=== PATIENT | male | born 1945 | race Caucasian/White ===

== ENCOUNTER 2020-02-23 14:32 | Inpatient (IN) | payer OTHER ==
[2020-02-23 14:47] VITALS: BMI 27.1
--- NOTE | 2020-02-23 15:10 | PDOC ---
History of Present Illness - General Chief Complaint: Pain, Acute Stated Complaint: ABDOMINAL PAIN Time Seen by Provider: 02/23/20 15:09 History Source: Patient Exam Limitations: No Limitations - History of Present Illness Initial Comments: 02/23/20 15:11 74-year-old male with history of prostate CA w mets, multiple myeloma, asthma, hypertension, diverticulosis, esophagitis, gastritis, and hemorroids, presenting today with 3d progressive worsening ashley lower ABD pain, constipation, reduced urinary volume, BLE weakness/pain radiating down glutes. Was evaluated on 02/05 for BLE MSK pain, transferred to [facility] for bone lytic lesions, soft tissue mass compressing S1-[address] De Jesus oncologist took care of him, endorsed pt having multiple myeloma and prostate CA mets, pt undergone kyphopasty on 02/06, chemo, and radiation, was supposed to f/u w Dr De Jesus tomorrow. Pt doesn't remember which meds he takes. Denies fever, n/v, cough, chest pain, BLE numbness. Past History - Medical History Allergies/Adverse Reactions: Allergies Allergy/AdvReac Type Severity Reaction Status Date / Time aspirin Allergy Verified 02/23/20 14:44 NSAIDS (Non-Steroidal Allergy Verified 02/23/20 14:44 Anti-Inflamma Home Medications: Ambulatory Orders Cetirizine HCl [Zyrtec -] 10 mg PO DAILY #10 tablet 12/14/14 Albuterol 2.5/Ipratropium 0.5 [Duoneb -] 1 neb IH QID 05/05/16 Albuterol Sulfate Inhaler - [Ventolin HFA Inhaler -] 2 inh PO Q6H 05/05/16 Amlodipine Besylate 10 mg PO DAILY 05/05/16 Atorvastatin Ca [Lipitor] 20 mg PO HS 05/05/16 Enalapril Maleate [Vasotec -] 10 mg PO DAILY 05/05/16 Hydrochlorothiazide 25 mg PO DAILY 05/05/16 Omeprazole [Prilosec] 40 mg PO DAILY 05/05/16 Tamsulosin HCl [Flomax -] 0.4 mg PO DAILY 05/05/16 Budesonide [Uceris] 33.4 gm RC BID #0 foam.appl 05/08/16 Wheat Dextrin [Benefiber] 1 each PO BID #0 powd.pack 05/08/16 Lidocaine 5% Patch [Lidoderm -] 1 patch TP DAILY #7 patch 01/03/20 Anemia: Yes Asthma: Yes Cancer: Yes (PROSTATE, RADIATION) COPD: No GI Disorders: Yes (DIVERTICULOSIS;ESOPHAGITIS;GERD;GASTRITIS;HEMORROIDS;H/H) HTN: Yes Hypercholesterolemia: Yes - Immunization History Immunization Up to Date: No - Psycho-Social/Smoking History Smoking History: Never smoked Have you smoked in the past 12 months: No Information on smoking cessation initiated: No - Substance Abuse Hx (Audit-C & DAST Scrn) How often the patient has a drink containing alcohol: Never Score: In Men: 4 or > Positive; In Women: 3 or > Positive: 0 Screen Result (Pos requires Nsg. Audit-10AR): Negative In the last yr the pt used illegal drug/Rx for NonMed reason: No Score: Yes response is considered Positive: 0 Screen Result (Positive result requires Nsg. DAST-10): Negative Review of Systems - Review of Systems Constitutional: No: Chills, Fever HEENTM: No: Eye Pain, Nose Congestion Respiratory: No: Cough, Shortness of Breath Cardiac (ROS): No: Chest Pain, Palpitations ABD/GI: Yes: Abdominal Distended, Constipated. No: Diarrhea, Nausea, Vomiting : Yes: Frequency (reduced). No: Burning, Dysuria Musculoskeletal: No: Gout, Joint Pain Integumentary: No: Bruising, Flushing Neurological: No: Headache, Seizure Psychiatric: No: Anxiety, Depression Endocrine: No: Intolerance to Cold, Intolerance to Heat Hematologic/Lymphatic: No: Anemia, Blood Clots *Physical Exam - Vital Signs Last Vital Signs Temp Pulse Resp BP Pulse Ox 98.3 F 101 H 20 100/63 96 02/23/20 14:45 02/23/20 14:45 02/23/20 14:45 02/23/20 14:45 02/23/20 14:45 - Physical Exam General Appearance: Yes: Nourished, Appropriately Dressed, Moderate Distress HEENT: positive: EOMI, HELEN, Normal Voice, Hearing Grossly Normal. negative: Scleral Icterus (R), Scleral Icterus (L) Respiratory/Chest: positive: Lungs Clear, Normal Breath Sounds. negative: Chest Tender, Respiratory Distress, Crackles, Rales, Rhonchi, Stridor, Wheezing Cardiovascular: positive: Regular Rhythm, S1, S2, Tachycardia. negative: Edema, Murmur Gastrointestinal/Abdominal: positive: Normal Bowel Sounds, Tender (mild LLQ, RLQ), Soft, Distended. negative: Guarding Rectal Exam: positive: normal rectal tone Musculoskeletal: positive: Other. negative: CVA Tenderness (R), CVA Tenderness (L), Vertebral Tenderness (no midline vertebral tenderness) Integumentary: positive: Normal Color, Warm Neurologic: positive: Fully Oriented, Alert. negative: Motor Strength 5/5 (4/5 BLE hip flexion, 5/5 dorsi/plantarflexion), Numbness (intact sensation to touch BLE) ED Treatment Course - LABORATORY CBC & Chemistry Diagram: 02/23/20 15:55 02/23/20 20:30 Medical Decision Making - Medical Decision Making 02/23/20 16:45 EKG - NSR, incomplete RBBB, HR 89, QTc 447, no ST changes CT A/P - moderate colonic distension at level of splenic flexure, no gross obstructing lesion, extensive neoplastic disease involving lumbosacral spine, moderate amount of fluid in bladder w mitchell in place, mod gallbladder overdistension, several punctate subpleural densities within RLL lung which may be d/t bronchiolitis, opacity within RML --- 74-year-old male with history of prostate CA w lumbosacral mets s/p Demarcus kyphoplasty 02/06, multiple myeloma, asthma, hypertension, diverticulosis, esophagitis, gastritis, and hemorrhoids, presenting today with 3d progressive worsening ashley lower ABD pain, constipation, reduced urinary volume, BLE weakness/pain radiating down glutes CT A/P shows mod colonic distension at splenic flexure, neoplastic disease. Also has urinary retention, ANSHUL (Cr 3.2), no UTI Has hypoNa 128, hyperK 6.9 hemolyzed, elevated tbili 2.0 Repeat hypoK 3.4 hemolyzed, Na resolved, Cr improving 1.7 Given insulin/dextrose, Ca gluconate, 1L NS. Placed mitchell w 1.1L drained Consulted Dr Neal Tracy onc - aware about pt has privileges, coming to [facility] tmrw Consulted Dr Johansen onc - make NPO, hydration, blood cx, give antibiotics if febrile, symptoms likely progression of myeloma Dr Neal replied, agrees with plan to admit pt to [facility], will evaluate plan tmrw Admit m/s hospitalist for urinary retention, colonic distension, ANSHUL, elevated tbili, multiple myeloma Mikael Willoughby MD [Primary Care Provider] Discharge - Discharge Information Problems reviewed: Yes Clinical Impression/Diagnosis: ANSHUL (acute kidney injury), Urinary retention, Dilatation of colon Multiple myeloma Qualifiers: Multiple myeloma remission status: unspecified Qualified Code(s): C90.00 - Multiple myeloma not having achieved remission Condition: Guarded - Follow up/Referral - Patient Discharge Instructions - Post Discharge Activity
[2020-02-23 16:08] LABS: BASO % 0.5 % (0-2.0); EOS % 0.3 % (0-4.5); HEMATOCRIT 35.4 % (35.4-49); HEMOGLOBIN 12.1 GM/dL (11.7-16.9); LYMPH % 4.3 % (8-40); MCH 34.4 pg (25.7-33.7); MCHC 34.3 g/dl (32.0-35.9); MEAN CELL VOLUME 100.3 fl (80-96); MEAN PLT VOLUME 8.9 fl (7.5-11.1); NEUT % 85.9 % (42.8-82.8); PLATELET COUNT 158 K/MM3 (134-434); RBC 3.52 M/mm3 (4.00-5.60); RDW 15.7 % (11.9-15.9); WHITE BLOOD COUNT 7.5 K/mm3 (4.0-10.0)
[2020-02-23 16:31] LABS: EPI CELLS 2 /uL (0-25.1); HYALINE CASTS 1 /uL (0-3.1); URINE APPEARANCE CLEAR; URINE BACTERIA 1 /uL (0-1359); URINE BILIRUBIN NEGATIVE (NEGATIVE); URINE COLOR YELLOW; URINE GLUCOSE (UA) NEGATIVE (NEGATIVE); URINE KETONE NEGATIVE (NEGATIVE); URINE LEUK ESTERASE NEGATIVE (NEGATIVE); URINE NITRITE NEGATIVE (NEGATIVE); URINE PROTEIN NEGATIVE (NEGATIVE); URINE RBC 23 /uL (0-23.9); URINE WBC 5 /uL (0-25.8)
[2020-02-23 16:34] LABS: ALBUMIN 2.3 g/dl (3.4-5.0); BLOOD UREA NITROGEN 44.4 mg/dL (7-18); CALCIUM 7.6 mg/dL (8.5-10.1); CREATININE 3.2 mg/dL (0.55-1.3); TOT PROT 8.4 g/dl (6.4-8.2)
[2020-02-23 16:38] LABS: POTASSIUM 6.9 mmol/L (3.5-5.1)
[2020-02-23] MEDS ORDERED: SODIUM CHLORIDE 0.9% 500 ML INFUS.BAG IV ONE (16:58)
[2020-02-23] MEDS ORDERED: INSULIN REGULAR HUMAN 100 UNITS/ML *VIAL IVPUSH ONE (17:03)
[2020-02-23] MEDS ORDERED: CALCIUM GLUCONATE 10% - 1,000 MG/10 ML VIAL IVPUSH ONE (17:03)
[2020-02-23] MEDS ORDERED: DEXTROSE 50%-WATER - 25 GM/50 ML VIAL IVPUSH ONE (17:03)
--- NOTE | 2020-02-23 18:03 | PDOC ---
Documentation entered by Diana Arteaga SCRIBE, acting as scribe for Annie Hernandez MD. Annie Hernandez MD: This documentation has been prepared by the Leona ray Sydney, SCRIBE, under my direction and personally reviewed by me in its entirety. I confirm that the documentation accurately reflects all work, treatment, procedures, and medical decision making performed by me. Attending Attestation - Resident Resident Name: LailaGordy - ED Attending Attestation I have performed the following: I have examined & evaluated the patient, The case was reviewed & discussed with the resident, I agree w/resident's findings & plan, Exceptions are as noted - HPI HPI: 02/23/20 17:33 Patient is a 74 year old male with a significant past medical history of HTN, prostate CA, asthma, diverticulosis, esophagitis, gastritis, hemorrhoids who presents to the ED with three days progressively worsening lower abdominal pain with associated constipation. HPI This patient was diagnosed with mets to his spine with nerve root compression in lumbosacral spine on 02/06/20 and transferred to [facility] where he received chemo,radiation and surgery.on 02/06/20 Allergies: ASA, NSAIDS 02/23/20 19:2 - Physicial Exam PE: 02/23/20 17:51 74 YO MALE P/W increasing abdominal pain head ncat neck supple lungs cta b/l cvs [id number] abdomen +distended,+ tenderness skin warm and dry extremities no deformities neuro axox3 02/23/20 19:34 02/23/20 20:40 - Medical Decision Making 02/23/20 19:3 02/23/20 19:35 02/23/20 19:35 ct scan abd/pel w/o contrast no acute surgical processes appreciated, there is distention of colon 02/23/20 20:41 pt found to have hyponatremia, ANSHUL His creatinine on 02/05 was 0.8 and today it is 3.2 02/23/20 20:42 02/23/20 22:46 This patient's oncologist will see the patient in the morning Discharge - Discharge Information Problems reviewed: Yes Clinical Impression/Diagnosis: ANSHUL (acute kidney injury), Urinary retention, Dilatation of colon Multiple myeloma Qualifiers: Multiple myeloma remission status: unspecified Qualified Code(s): C90.00 - Multiple myeloma not having achieved remission Condition: Guarded - Follow up/Referral - Patient Discharge Instructions - Post Discharge Activity
[2020-02-23] MEDS ORDERED: CALCIUM CHLORIDE 1 GM/10 ML *DISP.SYRIN ONE (18:46)
[2020-02-23] MEDS ORDERED: DEXTROSE 50%-WATER 25 GM/50 ML DISP.SYRIN ONE (18:46)
[2020-02-23] MEDS ORDERED: CALCIUM GLUCONATE 10% - 1,000 MG/10 ML VIAL ONE (18:47)
[2020-02-23] MEDS ORDERED: INSULIN REGULAR HUMAN 100 UNITS/ML *VIAL ONE (18:47)
[2020-02-23 21:38] LABS: BLOOD UREA NITROGEN 32.5 mg/dL (7-18); CREATININE 1.7 mg/dL (0.55-1.3); POTASSIUM 3.4 mmol/L (3.5-5.1)
[2020-02-23 21:42] LABS: CALCIUM 6.2 mg/dL (8.5-10.1)
[2020-02-23] MEDS ORDERED: SODIUM CHLORIDE 1,000 ML IV SCH (21:45)
--- NOTE | 2020-02-23 22:01 | PN ---
Teaching Attending Note Name of Resident: Jamie Rivera ATTENDING PHYSICIAN STATEMENT I saw and evaluated the patient. I reviewed the resident's note and discussed the case with the resident. I agree with the resident's findings and plan as documented. SUBJECTIVE: Patient is a 74 year old man with a PMH of Prostate cancer with metastasis (r adiotherapy 6 years ago), Multiple myeloma, Asthma, Hypertension, Diverticulosis, Esophagitis, Gastritis, and Hemorrhoids, presenting today with three days of progressive worsening lower abdominal pain, constipation, reduced urinary volume and BLE weakness/pain. Patient was evaluated on 02/06/20 for BLE musculoskeletal pain and transferred to [facility] for bone lytic lesions and soft tissue mass compressing S1-[address] De Jesus - the Oncologist who took care of him, reports patient has multiple myeloma and metastatic prostate cancer. Patient underwent kyphopasty on 02/07/20, chemotherapy, and radiation therapy and was supposed to follow up with Dr De Jesus tomorrow. Patient doesn't remember what medications he is taking. Denies fever, nausea, vomiting, cough, chest pain, diarrhea or BLE numbness. Denies alcohol, tobacco or illicit drug use. No sick contacts or recent travels. Family history is unremarkable. OBJECTIVE: Alert Vital Signs Period Temp Pulse Resp BP Sys/Carpenter Pulse Ox Last 24 Hr 98.3 F 101 20 100/63 96 HEENT: No Jaundice, eye redness or discharge, PERRLA, EOMI. Normocephalic, atraumatic. External ears are normal and hearing is grossly intact. No nasal discharge. Neck: Supple, nontender. No palpable adenopathy or thyromegaly. No JVD Chest: Good effort. Clear to auscultation and percussion. Heart: Regular. No S3, rub or murmur Abdomen: Distended, tympanic; soft, nontender and no HSM. No rebound or guarding. Normal bowel sounds. Ext: Peripheral pulses intact. No leg edema. Skin: Warm and dry. No petechiae, rash or ecchymosis. Neuro: Alert. Oriented x3. CN 2-12 grossly intact. Sensation grossly intact in all four extremities and DTR are symmetric. Psych: Appropriate mood and affect. Good insight. Current Medications Generic Name Dose Route Start Last Admin Trade Name Freq PRN Reason Stop Dose Admin Sodium Chloride 1,000 mls @ 42 mls/hr 02/23/20 21:45 02/23/20 22:03 Normal Saline - IV 42 mls/hr ASDIR [facility] Administration Home Medications Medication Instructions Recorded Cetirizine HCl [Zyrtec -] 10 mg PO DAILY #10 tablet 12/14/14 Albuterol 2.5/Ipratropium 0.5 1 neb IH QID 05/05/16 [Duoneb -] Albuterol Sulfate Inhaler - 2 inh PO Q6H 05/05/16 [Ventolin HFA Inhaler -] Amlodipine Besylate 10 mg PO DAILY 05/05/16 Atorvastatin Ca [Lipitor] 20 mg PO HS 05/05/16 Enalapril Maleate [Vasotec -] 10 mg PO DAILY 05/05/16 Hydrochlorothiazide 25 mg PO DAILY 05/05/16 Omeprazole [Prilosec] 40 mg PO DAILY 05/05/16 Tamsulosin HCl [Flomax -] 0.4 mg PO DAILY 05/05/16 Budesonide [Uceris] 33.4 gm RC BID #0 foam.appl 05/08/16 Wheat Dextrin [Benefiber] 1 each PO BID #0 powd.pack 05/08/16 Lidocaine 5% Patch [Lidoderm -] 1 patch TP DAILY #7 patch 01/03/20 Valacyclovir HCl [Valtrex -] 500 mg PO BID 02/23/20 Abnormal Lab Results 02/23/20 02/23/20 02/23/20 15:55 15:55 20:30 RBC 3.52 L MCV 100.3 H MCH 34.4 H Neutrophils % 85.9 H Lymphocytes % 4.3 L Sodium 128 L Potassium 6.9 H* 3.4 L Chloride 93 L 108 H Carbon Dioxide 20 L BUN 44.4 H 32.5 H Creatinine 3.2 H 1.7 H Random Glucose 124 H Calcium 7.6 L 6.2 L* Total Bilirubin 2.0 H AST 76 H Total Protein 8.4 H Albumin 2.3 L Current Medications Generic Name Dose Route Start Last Admin Trade Name Freq PRN Reason Stop Dose Admin Dexamethasone 4 mg 02/24/20 00:30 Decadron - PO Q6H [facility] Heparin Sodium (Porcine) 5,000 unit 02/24/20 06:00 Heparin - SQ TID [facility] Sodium Chloride 1,000 mls @ 42 mls/hr 02/23/20 21:45 02/23/20 22:03 Normal Saline - IV 42 mls/hr ASDIR ÁNGELA Administration ASSESSMENT AND PLAN: 1. Multiple myeloma/Metastatic prostate cancer/Urinary retention - Electrolyte abnormalities and ANSHUL likely due to urinary retention, which in turn may have been caused by malignancy. Initial BMP sample reportedly hemolysed, but patient got acute measures for hyperkalemia and IV calcium treatment and repeat BMP showed hypokalemia. Will repeat BMP before K+ replacement. Consult Oncology and Neurology and do a trial of Dexamethasone. CT abdomen/pelvis without contrast shows - "moderate colonic distension at level of splenic flexure, no gross obstructing lesion, extensive neoplastic disease involving lumbosacral spine, moderate amount of fluid in bladder with mitchell in place, moderate gallbladder overdistension, several punctate subpleural densities within RLL which may be due to bronchiolitis, opacity within RML" Colonic distension may be partly due to electrolyte abnormalities. Will keep him NPO, monitor electrolytes, get kidney sonogram, hydrate gently, monitor urine output and consult Nephrology and GI. Avoid nephrotoxic agents such as NSAIDS, aminoglycosides, contrast dyes and certain Alternative medicine products. Viral testing for COVID-19 ordered and patient placed on airborne, droplet and contact isolation. EKG shows NSR at 89/minute and QTc 447, IRBBB with no significant ST- T wave changes. Will continue comprehensive care for all of patients comorbid conditions. 2. Hypoalbuminemia - Possibly due to combined effects of malnutrition and inflammation associated with comorbid conditions. Will ensure adequate dietary protein intake and also consult field hockey coach. 3. Hypertension Patient has low normal BP. Will restart suitable outpatient antihypertensive drugs only when clinically appropriate. Subsequently, will revise regimen to ensure [id number] excellent BP control. Patient counseled on the injurious effects of uncontrolled hypertension. Nonpharmacologic measures to control hypertension like weight loss, salt restriction and exercise stressed. Importance of adherence to treatment regimen and attainment of normotension emphasized. 4. DVT prophylaxis - Heparin 5000u sq tid. 5. Advance directives - Full code
--- NOTE | 2020-02-23 23:00 | HP ---
CHIEF COMPLAINT: lower abd pain PCP: Fartun HISTORY OF PRESENT ILLNESS: 74M w/ pmh of prostate CA(sp RT in ~2013), Multiple Myeloma(dx ?last week), asthma, HTN, gastritis presenting to [facility] for complaint of cramping lower abd pain w/a constipation, bloating, inability to urinate x3d. Complains of lower abd pain that radiates to his things and buttocks. Thinks that there is numbness that extends from his buttocks down to his feet. Has difficulty walking d/t pain in his thighs. Was seen at [facility] last month(02/06/20) for evaluation BLE pain [id number] with CT L-spine showing a soft tissue mass extending into the sacral canal from L5 to S1 with likely compression of the S1 and S2 nerve roots. Pt was transferred to [facility] d/t [facility] lack of NSX coverage. Pt states that at [facility], he received spinal surgery, radiation and chemotherapy prior to being discharged last (?02/19/20). Was suppose to fu at Dr De Jesus's office this week. Denies LAD, night sweats, weight loss. Worked as a [employer]. Lives with . Document Agility [id number] ER course was notable for: (1) Tmax 98.3F, HR 101, 100/63 (2) Na 128, K 6.9(hemolyzed) (3) Dc insertion(drained 1.1L) (4) CT A/P: moderate colonic distension to the level of the splenic flexure. Neoplastic disease involving L-S spine. Moderate gallbladder overdistension (5) disscussion w/ Dr Johansen and Dr De Jesus; who concluded that the presentation is possibly d/t progression of MM and recommended admission for NPO, IVF (6) novolog 10U, D50, calcium gluconate, NS 1L Recent Travel: denies PAST MEDICAL HISTORY: as above PAST SURGICAL HISTORY: unspecificed spine surgery Social History: Smoking: denies Alcohol: denies Drugs: denies Allergies aspirin Allergy (Verified 02/23/20 14:44) NSAIDS (Non-Steroidal Anti-Inflamma Allergy (Verified 02/23/20 14:44) HOME MEDICATIONS: Home Medications Medication Instructions Recorded Cetirizine HCl [Zyrtec -] 10 mg PO DAILY #10 tablet 12/14/14 Albuterol 2.5/Ipratropium 0.5 1 neb IH QID 05/05/16 [Duoneb -] Albuterol Sulfate Inhaler - 2 inh PO Q6H 05/05/16 [Ventolin HFA Inhaler -] Amlodipine Besylate 10 mg PO DAILY 05/05/16 Atorvastatin Ca [Lipitor] 20 mg PO HS 05/05/16 Enalapril Maleate [Vasotec -] 10 mg PO DAILY 05/05/16 Hydrochlorothiazide 25 mg PO DAILY 05/05/16 Omeprazole [Prilosec] 40 mg PO DAILY 05/05/16 Tamsulosin HCl [Flomax -] 0.4 mg PO DAILY 05/05/16 Budesonide [Uceris] 33.4 gm RC BID #0 foam.appl 05/08/16 Wheat Dextrin [Benefiber] 1 each PO BID #0 powd.pack 05/08/16 Lidocaine 5% Patch [Lidoderm -] 1 patch TP DAILY #7 patch 01/03/20 Valacyclovir HCl [Valtrex -] 500 mg PO BID 02/23/20 REVIEW OF SYSTEMS CONSTITUTIONAL: loss of appetite Absent: fever, chills, diaphoresis, generalized weakness, malaise, weight change HEENT: Absent: rhinorrhea, nasal congestion, throat pain, throat swelling, difficulty swallowing, mouth swelling, ear pain, eye pain, visual changes CARDIOVASCULAR: Absent: chest pain, syncope, palpitations, irregular heart rate, lightheadedness, peripheral edema RESPIRATORY: Absent: cough, shortness of breath, dyspnea with exertion, orthopnea, wheezing, stridor, hemoptysis GASTROINTESTINAL: lower abd pain w/ distension, constipation Absent: nausea, vomiting, diarrhea, melena, hematochezia GENITOURINARY: urinary retention Absent: dysuria, frequency, urgency, hesitancy, hematuria, flank pain, genital pain MUSCULOSKELETAL: Absent: myalgia, arthralgia, joint swelling, back pain, neck pain SKIN: Absent: rash, itching, pallor HEMATOLOGIC/IMMUNOLOGIC: Absent: easy bleeding, easy bruising, lymphadenopathy, frequent infections ENDOCRINE: Absent: unexplained weight gain, unexplained weight loss, heat intolerance, cold intolerance NEUROLOGIC: Absent: headache, focal weakness or paresthesias, dizziness, unsteady gait, seizure, mental status changes, bladder or bowel incontinence PSYCHIATRIC: Absent: anxiety, depression, suicidal or homicidal ideation, hallucinations. PHYSICAL EXAMINATION Vital Signs - 24 hr 02/23/20 14:45 Temperature 98.3 F Pulse Rate 101 H Respiratory 20 Rate Blood Pressure 100/63 O2 Sat by Pulse 96 Oximetry (%) GENERAL: Awake, alert, and fully oriented, in no acute distress. HEAD: Normal with no signs of trauma. EYES: sclera anicteric, conjunctiva clear and w/o pallor. EARS, NOSE, THROAT: Moist mucous membranes. NECK: Normal range of motion, supple without lymphadenopathy, JVD, or masses. LUNGS: Breath sounds equal, clear to auscultation bilaterally. No wheezes, and no crackles. No accessory muscle use. HEART: Regular rate and rhythm, normal S1 and S2 without murmur, rub or gallop. ABDOMEN: Soft, nontender, mildly distended and tympanic to percussion, hypoactive bowel sounds RECTUM: normal anal wink. Normal anal tone(as per Dr Lopes) MUSCULOSKELETAL: Normal range of motion at all joints. No bony deformities or tenderness. No CVA tenderness. UPPER EXTREMITIES: 2+ pulses, warm, well-perfused. No cyanosis. No clubbing. No peripheral edema. LOWER EXTREMITIES: 2+ pulses, warm, well-perfused. No calf tenderness. No peripheral edema. NEUROLOGICAL: Cranial nerves II-XII intact. Normal speech. Sensation intact throughout upper and lower extremities. Neg straight leg raise Laboratory Results - last 24 hr 02/23/20 02/23/20 02/23/20 15:55 15:55 16:09 WBC 7.5 RBC 3.52 L Hgb 12.1 Hct 35.4 MCV 100.3 H MCH 34.4 H MCHC 34.3 RDW 15.7 Plt Count 158 D MPV 8.9 D Absolute Neuts (auto) 6.4 Neutrophils % 85.9 H Lymphocytes % 4.3 L Monocytes % 9.0 Eosinophils % 0.3 Basophils % 0.5 Nucleated RBC % 0 Sodium 128 L Potassium 6.9 H* Chloride 93 L Carbon Dioxide 25 Anion Gap 9 BUN 44.4 H Creatinine 3.2 H Est GFR (CKD-EPI)AfAm 21.11 Est GFR (CKD-EPI)NonAf 18.22 POC Glucometer Random Glucose 124 H Lactic Acid Calcium 7.6 L Total Bilirubin 2.0 H AST 76 H ALT 57 Alkaline Phosphatase 86 Total Protein 8.4 H Albumin 2.3 L Lipase 206 Urine Color Yellow Urine Appearance Clear Urine pH 5.0 Ur Specific [place] 1.013 Urine Protein Negative Urine Glucose (UA) Negative Urine Ketones Negative Urine Blood Trace Urine Nitrite Negative Urine Bilirubin Negative Urine Urobilinogen 1.0 Ur Leukocyte Esterase Negative Urine WBC (Auto) 5 Urine RBC (Auto) 23 Urine Casts (Auto) 1 U Epithel Cells (Auto) 2 Urine Bacteria (Auto) 1 02/23/20 02/23/20 02/23/20 18:59 20:30 21:49 WBC RBC Hgb Hct MCV MCH MCHC RDW Plt Count MPV Absolute Neuts (auto) Neutrophils % Lymphocytes % Monocytes % Eosinophils % Basophils % Nucleated RBC % Sodium 140 Potassium 3.4 L Chloride 108 H Carbon Dioxide 20 L Anion Gap 11 BUN 32.5 H Creatinine 1.7 H Est GFR (CKD-EPI)AfAm 45.36 Est GFR (CKD-EPI)NonAf 39.14 POC Glucometer 300 Random Glucose 84 Lactic Acid 1.9 Calcium 6.2 L* Total Bilirubin AST ALT Alkaline Phosphatase Total Protein Albumin Lipase Urine Color Urine Appearance Urine pH Ur Specific [place] Urine Protein Urine Glucose (UA) Urine Ketones Urine Blood Urine Nitrite Urine Bilirubin Urine Urobilinogen Ur Leukocyte Esterase Urine WBC (Auto) Urine RBC (Auto) Urine Casts (Auto) U Epithel Cells (Auto) Urine Bacteria (Auto) ASSESSMENT/PLAN: 74M w/ pmh of prostate CA(sp RT in ~2013), Multiple Myeloma(dx ?last week), asthma, HTN, gastritis presenting to [facility] for complaint of cramping lower abd pain w/a constipation, bloating, inability to urinate x3d. Admitted for possible cord compression 2/2 to soft tissue malignancy #abdominal pain w/ colonic distension --possibly 2/2 to irritation of sacral plexus from malignant compression, vs possible electrolyte derrangment > CT A/P: moderate colonic distension to the level of the splenic flexure. Neoplastic disease involving L-S spine. Moderate gallbladder overdistension - decadron 4mg q6h - Neurosurgery consult(Chiles): --recs pending - Oncology consult(Neal): --recs pending #ANSHUL --likely 2/2 to postrenal obstruction(urinary retention) #urinary retention --possibly from cord compression > Cr 3.2, 1.7, 1.4 - sp ED Dc placement(1.1L output immediately) - maintain Dc - trend Cr #hyperkalemia --d/t hemolysis. rpt hyperkalemia possible 2/2 kidney injury from outlet obstruction #hypocalcemia --?lab error > Na 128, K 6.9(hemolyzed) > Ca 7.6, 6.2, 7.8(corrected 9.1) - fu PTH - would have considered Vit D if persistently hypocalcemic #HTN - cw amlodipine, enalapril --pt doesn't know his home meds FEN - D5NS @50 - NPO DVT PPX: - SQH Family Medical History Family History: Unremarkable Visit type - Emergency Visit Emergency Visit: Yes ED Registration Date: 02/23/20 Care time: The patient presented to the Emergency Department on the above date and was hospitalized for further evaluation of their emergent condition. - New Patient This patient is new to me today: Yes Date on this admission: 02/24/20 - Critical Care Critical Care patient: No ATTENDING PHYSICIAN STATEMENT I saw and evaluated the patient. I reviewed the resident's note and discussed the case with the resident. I agree with the resident's findings and plan as documented. SUBJECTIVE: OBJECTIVE: ASSESSMENT AND PLAN:
[2020-02-24 02:19] LABS: ALBUMIN 2.4 g/dl (3.4-5.0); BLOOD UREA NITROGEN 29.7 mg/dL (7-18); CALCIUM 7.8 mg/dL (8.5-10.1); CREATININE 1.4 mg/dL (0.55-1.3); MAGNESIUM 2.9 mg/dL (1.8-2.4); POTASSIUM 5.4 mmol/L (3.5-5.1)
[2020-02-24] MEDS ORDERED: DEXAMETHASONE 4 MG TABLET (FP) ONE (02:26)
[2020-02-24] MEDS: DEXAMETHASONE 4 MG TABLET (FP) PO SCH ×2 (02:31→07:26)
[2020-02-24] MEDS ORDERED: SODIUM CHLORIDE 1,000 ML IV SCH (02:54)
[2020-02-24] MEDS ORDERED: DEXTROSE 5%-NORMAL SALINE 1,000 ML IV SCH (03:15)
[2020-02-24] MEDS ORDERED: HEPARIN NA (PORCINE) 5,000 UNITS/ML 1ML VIAL SQ SCH (06:00)
[2020-02-24] MEDS ORDERED: HEPARIN NA (PORCINE) 5,000 UNITS/ML 1ML VIAL ONE (06:41)
[2020-02-24] MEDS ORDERED: ALBUTEROL SO4 HFA INHALER IH PRN (06:42)
[2020-02-24 07:32] LABS: HEMATOCRIT 30.3 % (35.4-49); HEMOGLOBIN 10.2 GM/dL (11.7-16.9); MCH 34.3 pg (25.7-33.7); MCHC 33.8 g/dl (32.0-35.9); MEAN CELL VOLUME 101.4 fl (80-96); MEAN PLT VOLUME 8.9 fl (7.5-11.1); PLATELET COUNT 144 K/MM3 (134-434); RBC 2.99 M/mm3 (4.00-5.60); RDW 15.5 % (11.9-15.9)
[2020-02-24] MEDS ORDERED: ENALAPRIL MALEATE 5 MG TABLET (FP) ONE (08:11)
[2020-02-24] MEDS ORDERED: TAMSULOSIN HCL 0.4 MG CAP ONE (08:11)
[2020-02-24] MEDS ORDERED: amLODIPine BESYLATE 5 MG TABLET (FP) ONE (08:11)
[2020-02-24] MEDS ORDERED: TAMSULOSIN HCL 0.4 MG CAP PO SCH (08:30)
[2020-02-24] MEDS ORDERED: ENALAPRIL MALEATE 10 MG TABLET (FP) PO SCH (10:00)
[2020-02-24] MEDS ORDERED: amLODIPine BESYLATE 10 MG TABLET (FP) PO SCH (10:00)
--- NOTE | 2020-02-24 10:13 | EKG ---
Test Reason : Blood Pressure : / mmHG Vent. Rate : 089 BPM Atrial Rate : 089 BPM P-R Int : 120 ms QRS Dur : 100 ms QT Int : 368 ms P-R-T Axes : 066 006 035 degrees QTc Int : 447 ms NORMAL SINUS RHYTHM INCOMPLETE RIGHT BUNDLE BRANCH BLOCK BORDERLINE ECG WHEN COMPARED WITH ECG OF 06-FEB-2020 22:37, NO SIGNIFICANT CHANGE WAS FOUND Confirmed by Richie Mary MD ([id number]) on 02/24/2020 10:12:48 AM Referred By: Confirmed By:Richie Mary MD
[2020-02-24 10:29] LABS: ALBUMIN 2.2 g/dl (3.4-5.0); BILIRUBIN,TOTAL 0.8 mg/dL (0.2-1); BLOOD UREA NITROGEN 19.7 mg/dL (7-18); CALCIUM 7.6 mg/dL (8.5-10.1); CREATININE 0.9 mg/dL (0.55-1.3); MAGNESIUM 2.8 mg/dL (1.8-2.4); PHOSPHOROUS 1.8 mg/dL (2.5-4.9); POTASSIUM 4.1 mmol/L (3.5-5.1); TOT PROT 6.8 g/dl (6.4-8.2)
[2020-02-24 11:09] VITALS: BP 120/71; PULSE 78; TEMP 97.2
--- NOTE | 2020-02-24 12:44 | DS ---
Physical Exam: SUBJECTIVE: Patient seen and examined. States he has b/l LE pain. OBJECTIVE: Vital Signs Period Temp Pulse Resp BP Sys/Carpenter Pulse Ox Last 24 Hr 97.0 F-98.3 F 78-101 16-20 100-137/63-84 96-100 PHYSICAL EXAM GENERAL: The patient is awake, alert, and fully oriented, in no acute distress. HEENT: NCAT. MMM. LUNGS: Breath sounds equal, clear to auscultation bilaterally, no wheezes, no crackles, no accessory muscle use. HEART: Regular rate and rhythm, S1, S2 without murmur, rub or gallop. ABDOMEN: Soft, nontender, nondistended, normoactive bowel sounds, no guarding, no rebound, no hepatosplenomegaly, no masses. EXTREMITIES: 2+ pulses, warm, well-perfused, no edema. NEUROLOGICAL: Cranial nerves II through XII grossly intact. Mild diminished sensation b/l LE. PSYCH: Normal mood, normal affect. SKIN: Warm, dry, normal turgor, no rashes or lesions noted. LABS Laboratory Results - last 24 hr 02/23/20 02/23/20 02/23/20 15:55 15:55 16:09 WBC 7.5 RBC 3.52 L Hgb 12.1 Hct 35.4 MCV 100.3 H MCH 34.4 H MCHC 34.3 RDW 15.7 Plt Count 158 D MPV 8.9 D Absolute Neuts (auto) 6.4 Neutrophils % 85.9 H Lymphocytes % 4.3 L Monocytes % 9.0 Eosinophils % 0.3 Basophils % 0.5 Nucleated RBC % 0 Sodium 128 L Potassium 6.9 H* Chloride 93 L Carbon Dioxide 25 Anion Gap 9 BUN 44.4 H Creatinine 3.2 H Est GFR (CKD-EPI)AfAm 21.11 Est GFR (CKD-EPI)NonAf 18.22 POC Glucometer Random Glucose 124 H Lactic Acid Calcium 7.6 L Phosphorus Magnesium Total Bilirubin 2.0 H AST 76 H ALT 57 Alkaline Phosphatase 86 Total Protein 8.4 H Albumin 2.3 L Lipase 206 TSH Urine Color Yellow Urine Appearance Clear Urine pH 5.0 Ur Specific [place] 1.013 Urine Protein Negative Urine Glucose (UA) Negative Urine Ketones Negative Urine Blood Trace Urine Nitrite Negative Urine Bilirubin Negative Urine Urobilinogen 1.0 Ur Leukocyte Esterase Negative Urine WBC (Auto) 5 Urine RBC (Auto) 23 Urine Casts (Auto) 1 U Epithel Cells (Auto) 2 Urine Bacteria (Auto) 1 02/23/20 02/23/20 02/23/20 18:59 20:30 21:49 WBC RBC Hgb Hct MCV MCH MCHC RDW Plt Count MPV Absolute Neuts (auto) Neutrophils % Lymphocytes % Monocytes % Eosinophils % Basophils % Nucleated RBC % Sodium 140 Potassium 3.4 L Chloride 108 H Carbon Dioxide 20 L Anion Gap 11 BUN 32.5 H Creatinine 1.7 H Est GFR (CKD-EPI)AfAm 45.36 Est GFR (CKD-EPI)NonAf 39.14 POC Glucometer 300 Random Glucose 84 Lactic Acid 1.9 Calcium 6.2 L* Phosphorus Magnesium Total Bilirubin AST ALT Alkaline Phosphatase Total Protein Albumin Lipase TSH Urine Color Urine Appearance Urine pH Ur Specific [place] Urine Protein Urine Glucose (UA) Urine Ketones Urine Blood Urine Nitrite Urine Bilirubin Urine Urobilinogen Ur Leukocyte Esterase Urine WBC (Auto) Urine RBC (Auto) Urine Casts (Auto) U Epithel Cells (Auto) Urine Bacteria (Auto) 02/24/20 02/24/20 02/24/20 01:44 06:46 06:55 WBC 5.0 RBC 2.99 L Hgb 10.2 L Hct 30.3 L MCV 101.4 H MCH 34.3 H MCHC 33.8 RDW 15.5 Plt Count 144 MPV 8.9 Absolute Neuts (auto) Neutrophils % Lymphocytes % Monocytes % Eosinophils % Basophils % Nucleated RBC % Sodium 134 L Potassium 5.4 H Chloride 99 Carbon Dioxide 26 Anion Gap 9 BUN 29.7 H Creatinine 1.4 H Est GFR (CKD-EPI)AfAm 57.36 Est GFR (CKD-EPI)NonAf 49.49 POC Glucometer 119 Random Glucose 99 Lactic Acid Calcium 7.8 L Phosphorus 3.0 Magnesium 2.9 H Total Bilirubin 1.0 AST 22 ALT 46 Alkaline Phosphatase 82 Total Protein 7.0 Albumin 2.4 L Lipase TSH Urine Color Urine Appearance Urine pH Ur Specific [place] Urine Protein Urine Glucose (UA) Urine Ketones Urine Blood Urine Nitrite Urine Bilirubin Urine Urobilinogen Ur Leukocyte Esterase Urine WBC (Auto) Urine RBC (Auto) Urine Casts (Auto) U Epithel Cells (Auto) Urine Bacteria (Auto) 02/24/20 09:18 WBC RBC Hgb Hct MCV MCH MCHC RDW Plt Count MPV Absolute Neuts (auto) Neutrophils % Lymphocytes % Monocytes % Eosinophils % Basophils % Nucleated RBC % Sodium 136 Potassium 4.1 Chloride 101 Carbon Dioxide 26 Anion Gap 9 BUN 19.7 H Creatinine 0.9 Est GFR (CKD-EPI)AfAm 97.86 Est GFR (CKD-EPI)NonAf 84.43 POC Glucometer Random Glucose 117 H Lactic Acid Calcium 7.6 L Phosphorus 1.8 L Magnesium 2.8 H Total Bilirubin 0.8 AST 19 ALT 45 Alkaline Phosphatase 77 Total Protein 6.8 Albumin 2.2 L Lipase TSH 0.78 Urine Color Urine Appearance Urine pH Ur Specific [place] Urine Protein Urine Glucose (UA) Urine Ketones Urine Blood Urine Nitrite Urine Bilirubin Urine Urobilinogen Ur Leukocyte Esterase Urine WBC (Auto) Urine RBC (Auto) Urine Casts (Auto) U Epithel Cells (Auto) Urine Bacteria (Auto) HOSPITAL COURSE: 74 y.. M w/ pmh of prostate CA(sp RT in ~2013), Multiple Myeloma(dx last week), asthma, HTN, gastritis presenting to [facility] for complaint of cramping lower abd pain w/a constipation, bloating, inability to urinate x3d. Was seen at [facility] last month(02/06/20) for evaluation BLE pain x3 month with CT L-spine showing a soft tissue mass extending into the sacral canal from L5 to S1 with likely compression of the S1 and S2 nerve roots. Pt was transferred to [facility] d/t [facility]'s lack of neurosurgery coverage. At [facility] patient had a vertebroplasty and was d/c'd on 02/19/2020. Patient now presenting with post-op symptoms. [facility] transfer center was contacted, patient for transfer to [facility] under Dr. Ordaz services. VSS. Hemodynamically stable for transport. Date of Admission:02/23/20 Date of Discharge: 02/24/20 Minutes to complete discharge: 36 Discharge Summary Problems reviewed: Yes Reason For Visit: ACUTE KIDNEY INJURY,RETENTION OF URINE, Condition: Guarded - Instructions Disposition: TRANSFER ACUTE CARE/OTHER HOSP - Home Medications Comprehensive Discharge Medication List: Ambulatory Orders Cetirizine HCl [Zyrtec -] 10 mg PO DAILY #10 tablet 12/14/14 Albuterol 2.5/Ipratropium 0.5 [Duoneb -] 1 neb IH QID 05/05/16 Albuterol Sulfate Inhaler - [Ventolin HFA Inhaler -] 2 inh PO Q6H 05/05/16 Amlodipine Besylate 10 mg PO DAILY 05/05/16 Atorvastatin Ca [Lipitor] 20 mg PO HS 05/05/16 Enalapril Maleate [Vasotec -] 10 mg PO DAILY 05/05/16 Hydrochlorothiazide 25 mg PO DAILY 05/05/16 Omeprazole [Prilosec] 40 mg PO DAILY 05/05/16 Tamsulosin HCl [Flomax -] 0.4 mg PO DAILY 05/05/16 Budesonide [Uceris] 33.4 gm RC BID #0 foam.appl 05/08/16 Wheat Dextrin [Benefiber] 1 each PO BID #0 powd.pack 05/08/16 Lidocaine 5% Patch [Lidoderm -] 1 patch TP DAILY #7 patch 01/03/20 Valacyclovir HCl [Valtrex -] 500 mg PO BID 02/23/20 This patient is new to me today: Yes Date on this admission: 02/24/20 Emergency Visit: Yes ED Registration Date: 02/23/20 Care time: The patient presented to the Emergency Department on the above date and was hospitalized for further evaluation of their emergent condition. Critical Care patient: No - Discharge Referral Referred to [facility] Med P.C.: No ATTENDING PHYSICIAN STATEMENT I saw and evaluated the patient. I reviewed the resident's note and discussed the case with the resident. I agree with the resident's findings and plan as documented. SUBJECTIVE: OBJECTIVE: ASSESSMENT AND PLAN:
== END 2020-02-24 11:30 | disposition short-term general hospital (02) | DRG 841 ==
LOC: JER 14:32 → JERBED 17:57
PROVIDERS: ADMIT Internal Medicine; ATTEND Internal Medicine
DX: C90.00 Multiple myeloma not having achieved remission (principal); G95.29 Other cord compression; C79.89 Secondary malignant neoplasm of other specified sites; N17.9 Acute kidney failure, unspecified; E87.1 Hypo-osmolality and hyponatremia; E46 Unspecified protein-calorie malnutrition; C79.51 Secondary malignant neoplasm of bone; J45.909 Unspecified asthma, uncomplicated; I10 Essential (primary) hypertension; K29.70 Gastritis, unspecified, without bleeding; C61 Malignant neoplasm of prostate; R33.9 Retention of urine, unspecified; K59.00 Constipation, unspecified; E88.09 Other disorders of plasma-protein metabolism, not elsewhere classified; E87.5 Hyperkalemia; K63.89 Other specified diseases of intestine
CPT/HCPCS: 36415; 74176-TC; 80048; 80053; 81003; 82962; 83605; 83690; 83735; 83970; 84100; 84443; 85025; 85027; 87040; 87086; 93005; 93010; 99285-25; J1644; U0003

== ENCOUNTER 2020-04-20 11:02 | Emergency (ER) | payer OTHER ==
[2020-04-20 11:12] VITALS: TEMP 97.7; BMI 22.6
--- NOTE | 2020-04-20 11:12 | PDOC ---
Rapid Medical Evaluation Time Seen by Provider: 04/20/20 11:09 Medical Evaluation: Allergies Allergy/AdvReac Type Severity Reaction Status Date / Time aspirin Allergy Verified 04/20/20 11:07 NSAIDS (Non-Steroidal Allergy Verified 04/20/20 11:07 Anti-Inflamma 04/20/20 11:09 74 year old male primary gambian speaking pmhx of melanoma, anemia, asthma, prostate cancer, HTN complaining of lower abdominal pain. Pt states he has a catheter but does not know why or who placed it. denies fever chills n/v/d PE: mitchell leg bag with yellow urine no pus ttp over supra pubic region A/P Labs UA Imaging differed to provider Pt to precede to ED for further eval and treatment
[2020-04-20 13:02] LABS: BASO % 0.7 % (0-2.0); EOS % 1.3 % (0-4.5); HEMATOCRIT 34.5 % (35.4-49); HEMOGLOBIN 11.4 GM/dL (11.7-16.9); MCH 33.8 pg (25.7-33.7); MCHC 33.1 g/dl (32.0-35.9); MEAN PLT VOLUME 7.9 fl (7.5-11.1); PLATELET COUNT 343 K/MM3 (134-434); RBC 3.38 M/mm3 (4.00-5.60); RDW 16.8 % (11.9-15.9); WHITE BLOOD COUNT 4.2 K/mm3 (4.0-10.0)
[2020-04-20 13:10] LABS: INR 1.16 (0.83-1.09); PROTHROMBIN TIME (PATIENT) 13.7 SEC (9.7-13.0)
[2020-04-20 13:13] LABS: ACTIVATED PTT 33.5 SECONDS (25.2-36.5)
[2020-04-20] MEDS ORDERED: LIDOCAINE HCL 2% JELLY 10 ML CARTRIDGE UR ONE (13:39)
--- NOTE | 2020-04-20 13:50 | PDOC ---
Documentation entered by Milad Nieves SCRIBE, acting as scribe for Juana Artis MD. Juana Artis MD: This documentation has been prepared by the scribe, Milad Nieves SCRIBE, under my direction and personally reviewed by me in its entirety. I confirm that the documentation accurately reflects all work, treatment, procedures, and medical decision making performed by me. Attending Attestation - Resident Resident Name: PetraSabasphani - ED Attending Attestation I have performed the following: I have examined & evaluated the patient, The case was reviewed & discussed with the resident, I agree w/resident's findings & plan, Exceptions are as noted - HPI HPI: hx melanoma, anemia, asthma, prostate cancer, HTN complaining of lower abdominal pain The patient is a 74 year old male with a significant past medical history of HTN, anemia, prostate CA, asthma, diverticulosis, esophagitis, gastritis, and hemorrhoids who presents to the emergency department for evaluation of lower abd ominal pain. 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 where he received chemo, radiation and surgery on 02/06/20. The patient denies chest/abdominal/back pain, cough, and shortness of breath. Denies fever, chills, nausea, vomiting, and/or any GI symptoms. Denies any symptoms. Denies any other symptoms. Allergies: aspirin, NSAIDs PCP: Dr. Willoughby - Physicial Exam PE: 04/20/20 12:02 GENERAL: Awake, alert, and fully oriented, in no acute distress HEAD: No signs of trauma EYES: PERRLA, EOMI, sclera anicteric, conjunctiva clear ENT: Auricles normal inspection, hearing grossly normal, nares patent, oropharynx clear without exudates. Moist mucosa NECK: Normal ROM, supple, no lymphadenopathy, JVD, or masses LUNGS: Breath sounds equal, clear to auscultation bilaterally. No wheezes, and no crackles HEART: Regular rate and rhythm, normal S1 and S2, no murmurs, rubs or gallops ABDOMEN: Soft, +severe suprapubic tenderness, normoactive bowel sounds. +Guarding, no rebound. No masses EXTREMITIES: Normal range of motion, no edema. No clubbing or cyanosis. No cords, erythema, or tenderness NEUROLOGICAL: Cranial nerves II through XII grossly intact. Normal speech. No sensorimotor deficits. SKIN: Warm, Dry, normal turgor, no rashes or lesions noted. - Medical Decision Making 04/20/20 13:48 Pt with abdominal pain, history of prostate CA, has had the same mitchell catheter for 2 months. Will change in ED and send UA/UCx. Based on the amount of time that the mitchell has been in place, UTI would be extremely likely. However, in light of his history, will obtain CT a/p and lumbar as well. Discharge - Discharge Information Problems reviewed: Yes Clinical Impression/Diagnosis: UTI (urinary tract infection) Qualifiers: Urinary tract infection type: catheter-associated UTI Indwelling urinary catheter type: indwelling urethral catheter Encounter type: initial encounter Qualified Code(s): T83.511A - Infection and inflammatory reaction due to indwelling urethral catheter, initial encounter; N39.0 - Urinary tract infection, site not specified Condition: Stable Disposition: HOME - Additional Discharge Information Prescriptions: Sulfamethoxazole/Trimethoprim [Bactrim Ds -] 1 tab PO BID 14 Days #28 tablet - Follow up/Referral Referrals: Callum Keller MD [Staff Physician] - Mikael Willoughby MD [Primary Care Provider] - - Patient Discharge Instructions Patient Printed Discharge Instructions: Urinary Tract Infection Additional Instructions: Follow up with your urologist dr. carlin and your oncologist in the next 2-3 days. you were prescribed antibiotics, take them exactly as your caregiver instructs you. Finish the medication even if you feel better.Drink enough water and fluids to keep your urine clear or pale yellow. Avoid caffeine, tea, and carbonated beverages - these can irritate your bladder. Empty your bladder often. Avoid holding urine for long periods of time. Empty your bladder before and after sexual intercourse. . SEEK MEDICAL CARE IF: You have back pain. You develop a fever. Your symptoms do not begin to resolve within 3 days. SEEK IMMEDIATE MEDICAL CARE IF: You have severe back pain or lower abdominal pain. You develop chills. You have nausea or vomiting. You have continued burning or discomfort with urination. - Post Discharge Activity
[2020-04-20 14:09] LABS: BLOOD UREA NITROGEN 9.6 mg/dL (7-18); CALCIUM 8.4 mg/dL (8.5-10.1); CREATININE 0.6 mg/dL (0.55-1.3); POTASSIUM 4.8 mmol/L (3.5-5.1)
[2020-04-20] MEDS ORDERED: ACETAMINOPHEN 1000 MG/100 ML VIAL (NON FORMULARY) IVPB ONE (14:13)
[2020-04-20 14:45] LABS: BILIRUBIN,TOTAL 0.7 mg/dL (0.2-1)
--- NOTE | 2020-04-20 14:56 | PDOC ---
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 pt reports pain started this a.m and radiates across his lower abdomen. No relieving or exacerbating factors.Pain does not radiate to his groin. Pt has had mitchell catheter for the last 2months, it has not been changed. denies: nausa. vomiting, diarrhea, cva tenderness. Last chemo: 5 days ago. PMHx: as noted above ROS: as noted SHx: Denies Etoh, IVDA, tobacco use Allergies: NKDA oncologist: Dr. Ludwig De Jesus pcp: Dr. Willoughby. ROS: GENERAL/CONSTITUTIONAL: No fever or chills. No weakness. HEAD, EYES, EARS, NOSE AND THROAT: No change in vision. No ear pain or discharge. No sore throat. CARDIOVASCULAR: No chest pain or shortness of breath RESPIRATORY: No cough, wheezing, or hemoptysis. GASTROINTESTINAL: No nausea, vomiting, diarrhea or constipation. GENITOURINARY: No dysuria, frequency, or change in urination. MUSCULOSKELETAL: No joint or muscle swelling or pain. No neck or back pain. SKIN: No rash NEUROLOGIC: No headache, vertigo, loss of consciousness, or change in strength/sensation. ENDOCRINE: No increased thirst. No abnormal weight change HEMATOLOGIC/LYMPHATIC: No anemia, easy bleeding, or history of blood clots. ALLERGIC/IMMUNOLOGIC: No hives or skin allergy. PE: GENERAL: Awake, alert, and fully oriented, in no acute distress HEAD: No signs of trauma, normocephalic, atraumatic EYES: PERRLA, EOMI, sclera anicteric, conjunctiva clear ENT: Auricles normal inspection, hearing grossly normal, nares patent, oropharynx clear without exudates. Moist mucosa NECK: Normal ROM, supple, no lymphadenopathy, JVD, or masses LUNGS: No distress, speaks full sentences, clear to auscultation bilaterally HEART: Regular rate and rhythm, normal S1 and S2, systolic murmur,no rubs or gallops, peripheral pulses normal and equal bilaterally. ABDOMEN: Soft, suprapubic ttp and guarding. : mitchell catheter in place, no penile discharge. no testicular swelling/erythema no tenderness EXTREMITIES : Normal inspection, Normal range of motion, no edema. No clubbing or cyanosis NEUROLOGICAL: Cranial nerves II through XII grossly intact. Normal speech, normal gait, no focal sensorimotor deficits SKIN: Warm, Dry, normal turgor, sacral ulcer. 04/20/20 14:58 HT Past History - Medical History Allergies/Adverse Reactions: Allergies Allergy/AdvReac Type Severity Reaction Status Date / Time aspirin Allergy Verified 04/20/20 11:07 NSAIDS (Non-Steroidal Allergy Verified 04/20/20 11:07 Anti-Inflamma Home Medications: Ambulatory Orders Cetirizine HCl [Zyrtec -] 10 mg PO DAILY #10 tablet 12/14/14 Albuterol 2.5/Ipratropium 0.5 [Duoneb -] 1 neb IH QID 05/05/16 Albuterol Sulfate Inhaler - [Ventolin HFA Inhaler -] 2 inh PO Q6H 05/05/16 Amlodipine Besylate 10 mg PO DAILY 05/05/16 Atorvastatin Ca [Lipitor] 20 mg PO HS 05/05/16 Enalapril Maleate [Vasotec -] 10 mg PO DAILY 05/05/16 Hydrochlorothiazide 25 mg PO DAILY 05/05/16 Omeprazole [Prilosec] 40 mg PO DAILY 05/05/16 Tamsulosin HCl [Flomax -] 0.4 mg PO DAILY 05/05/16 Budesonide [Uceris] 33.4 gm RC BID #0 foam.appl 05/08/16 Wheat Dextrin [Benefiber] 1 each PO BID #0 powd.pack 05/08/16 Lidocaine 5% Patch [Lidoderm -] 1 patch TP DAILY #7 patch 01/03/20 Valacyclovir HCl [Valtrex -] 500 mg PO BID 02/23/20 Ibuprofen TID 02/24/20 Simethicone DAILY PRN 02/24/20 Sulfamethoxazole/Trimethoprim [Bactrim Ds -] 1 tab PO BID 14 Days #28 tablet 04/20/20 Anemia: Yes Asthma: Yes Cancer: Yes (PROSTATE, RADIATION) COPD: No GI Disorders: Yes (DIVERTICULOSIS;ESOPHAGITIS;GERD;GASTRITIS;HEMORROIDS;H/H) HTN: Yes Hypercholesterolemia: Yes - Immunization History Immunization Up to Date: No - Psycho-Social/Smoking History Smoking History: Never smoked Have you smoked in the past 12 months: No - Substance Abuse Hx (Audit-C & DAST Scrn) How often the patient has a drink containing alcohol: Never Score: In Men: 4 or > Positive; In Women: 3 or > Positive: 0 Screen Result (Pos requires Nsg. Audit-10AR): Negative In the last yr the pt used illegal drug/Rx for NonMed reason: No Score: Yes response is considered Positive: 0 Screen Result (Positive result requires Nsg. DAST-10): Negative *Physical Exam - Vital Signs Last Vital Signs Temp Pulse Resp BP Pulse Ox 97.7 F 95 H 18 110/75 100 04/20/20 11:08 04/20/20 11:08 04/20/20 11:08 04/20/20 11:08 04/20/20 11:08 ED Treatment Course - LABORATORY CBC & Chemistry Diagram: 04/20/20 12:10 04/20/20 12:10 - ADDITIONAL ORDERS Additional order review: Laboratory Results 04/20/20 04/20/20 04/20/20 12:10 12:10 12:10 PT with INR 13.70 H INR 1.16 H PTT (Actin FS) 33.5 Sodium 138 Potassium 4.8 Chloride 105 Carbon Dioxide 26 Anion Gap 8 BUN 9.6 Creatinine 0.6 Est GFR (CKD-EPI)AfAm 115.60 Est GFR (CKD-EPI)NonAf 99.74 Random Glucose 90 Calcium 8.4 L Total Bilirubin 0.7 AST 43 H ALT 41 Alkaline Phosphatase 90 Total Protein 6.0 L Albumin 3.0 L Urine Color Cancelled Urine Appearance Cancelled Urine pH Cancelled Ur Specific [place] Cancelled Urine Protein Cancelled Urine Glucose (UA) Cancelled Urine Ketones Cancelled Urine Blood Cancelled Urine Nitrite Cancelled Urine Bilirubin Cancelled Urine Urobilinogen Cancelled Ur Leukocyte Esterase Cancelled Urine WBC (Auto) Cancelled Urine RBC (Auto) Cancelled Urine Casts (Auto) Cancelled U Pathogenic Cast Auto Cancelled U Epithel Cells (Auto) Cancelled U Sm Round Cell (Auto) Cancelled Urine Crystals (Auto) Cancelled Urine Bacteria (Auto) Cancelled Urine Yeast (Auto) Cancelled 04/20/20 12:10 RBC 3.38 L MCV 102.0 H MCHC 33.1 RDW 16.8 H MPV 7.9 D Neutrophils % 56.0 D Lymphocytes % 26.0 D Monocytes % 16.0 H Eosinophils % 1.3 D Basophils % 0.7 - RADIOLOGY Radiology Studies Ordered: Category Date Time Status ABDOMEN & PELVIS CT WITH CONTR [CT] Stat CT Scan 04/20/20 13:[address] W/O CONTRAST [CT] Stat CT Scan 04/20/20 13:48 Ordered - Medications Given in the ED: ED Medications Discontinued Medications Generic Name Dose Route Start Last Admin Trade Name Freq PRN Reason Stop Dose Admin Lidocaine HCl 5 ml 04/20/20 13:39 04/20/20 13:48 Xylocaine 2% Uro-Jet UR 04/20/20 13:40 Not Given ONCE ONE Medical Decision Making - Medical Decision Making 04/20/20 15:03 74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 ddx; uti, diverticulitis, mesenteric ischemia, colitis, 04/20/20 15:03 labs, ua ct abdomen and pelvis lumbar spine meds: tylenol for pain 04/20/20 16:51 UA with +nitrites,leukocyte esterase, blood Pt feeling better after tylenol. 04/20/20 17:53 CT results Clinical information: suprapubic pain Multiplanar imaging was performed following the intravenous administration of nonionic contrast. Enteric contrast was not administered. No evidence of pneumoperitoneum, free intraperitoneal fluid, abscess or bowel obstruction. In comparison to a prior CT exam of 02/23/2020 interval resolution of moderate colonic distention is noted A Mitchell catheter is seen within the collapsed urinary bladder lumen. The remainder of the exam demonstrates no definite interval change. Lumbar spine osseous metastatic neoplastic disease is seen. Status post left sacral vertebroplasty as on the prior exam. Note is again made of a pathologic horizontal sacral fracture at the S1 level. Moderate to large hiatal hernia. The liver, spleen, pancreas, gallbladder, adrenal glands and kidneys demonstrate no discrete pathology. Bilateral renal cortical cysts. There is no aortic aneurysm. No obvious lymphadenopathy is noted. The appendix appears unremarkable. No CT evidence of acute diverticulitis. There is no gross noncontrast small bowel abnormality. There is partial imaging of at least moderate atherosclerotic coronary artery calcifications. Impression: no definite CT findings of acute soft tissue pathology are identified. Lumbosacral osseous metastatic neoplastic disease is again noted. There is also again note made of a pathologic horizontal sacral fracture at the S1 level with minimal to mild offset. Status post left sacral vertebroplasty as on the previous exam. Mitchell catheter in place. Moderate to large hiatal hernia. Colonic diverticulosis. Lumbar spine CT Clinical information: spinal metastases Multiplanar imaging was performed. The exam was obtained in conjunction with contrast-enhanced abdomen/pelvis CT. No obvious interval change is noted comparison to an abdomen/pelvic CT study of 02/23/2020. Bilateral sacral osseous neoplastic disease is noted. There is again note made of a pathologic horizontal fracture at the S1 level. Status post left sacral ve rtebroplasty as on the previous exam. No definite spinal canal compromise is seen. There is no obvious CT evidence of epidural neoplastic disease. No discrete disc herniation or canal stenosis is noted. The perivertebral soft tissues demonstrate no obvious pathology. Impression: No definite change is identified as discussed above. If there is significant symptomatology or neurological deficit MRI evaluation is suggested. Discharge - Discharge Information Problems reviewed: Yes Clinical Impression/Diagnosis: UTI (urinary tract infection) Condition: Stable Disposition: HOME - Additional Discharge Information Prescriptions: Sulfamethoxazole/Trimethoprim [Bactrim Ds -] 1 tab PO BID 14 Days #28 tablet - Follow up/Referral Referrals: Mikael Willoughby MD [Primary Care Provider] - Callum Keller MD [Staff Physician] - - Patient Discharge Instructions Patient Printed Discharge Instructions: Urinary Tract Infection Additional Instructions: Follow up with your urologist dr. carlin and your oncologist in the next 2-3 days. you were prescribed antibiotics, take them exactly as your caregiver instructs you. Finish the medication even if you feel better.Drink enough water and fluids to keep your urine clear or pale yellow. Avoid caffeine, tea, and carbonated beverages - these can irritate your bladder. Empty your bladder often. Avoid holding urine for long periods of time. Empty your bladder before and after sexual intercourse. . SEEK MEDICAL CARE IF: You have back pain. You develop a fever. Your symptoms do not begin to resolve within 3 days. SEEK IMMEDIATE MEDICAL CARE IF: You have severe back pain or lower abdominal pain. You develop chills. You have nausea or vomiting. You have continued burning or discomfort with urination. - Post Discharge Activity
[2020-04-20] MEDS ORDERED: ACETAMINOPHEN INJECTION 100 ML IVPB ONE (15:18)
[2020-04-20 15:45] LABS: EPI CELLS >36 /uL (0-25.1); HYALINE CASTS 24 /uL (0-3.1); URINE APPEARANCE CLOUDY; URINE BACTERIA >9,000 /uL (0-1359); URINE BILIRUBIN NEGATIVE (NEGATIVE); URINE COLOR YELLOW; URINE GLUCOSE (UA) NEGATIVE (NEGATIVE); URINE KETONE TRACE (NEGATIVE); URINE LEUK ESTERASE 2+ (NEGATIVE); URINE NITRITE POSITIVE (NEGATIVE); URINE PROTEIN 1+ (NEGATIVE); URINE RBC 5 /uL (0-23.9); URINE WBC 96 /uL (0-25.8)
[2020-04-20] MEDS ORDERED: CEFTRIAXONE 1 GM in DEXTROSE 5%-WATER - 50 ML IVPB ONE (17:32)
[2020-04-20] MEDS ORDERED: CEFTRIAXONE 1 GM/50 ML BAG ONE (17:57)
[2020-04-20 18:45] VITALS: BP 107/74; PULSE 86
== END 2020-04-20 18:45 | disposition home or self-care (01) ==
LOC: JER 11:02
PROC: 3E03329 Introduction of Other Anti-infective into Peripheral Vein, Percutaneous Approach (ICD-10-PCS; principal; 2020-04-20)
PROC: 3E033GC Introduction of Other Therapeutic Substance into Peripheral Vein, Percutaneous Approach (ICD-10-PCS; 2020-04-20)
DX: N39.0 Urinary tract infection, site not specified (principal)
CPT/HCPCS: 36415; 72131-TC; 74177-TC; 80053; 81003; 85025; 85610; 85730; 87086; 87186; 99285-25; J0131; Q9967

== ENCOUNTER 2020-06-08 12:28 | Inpatient (IN) | payer OTHER ==
[2020-06-08] MEDS ORDERED: ALBUTEROL SO4 HFA INHALER IH ONE ×2 (12:45→13:19)
[2020-06-08] MEDS ORDERED: DEXAMETHASONE SOD PHOSPHATE 10 MG/1 ML VIAL IM ONE (12:45)
--- NOTE | 2020-06-08 12:45 | PDOC ---
Rapid Medical Evaluation Time Seen by Provider: 06/08/20 12:43 Medical Evaluation: Allergies Allergy/AdvReac Type Severity Reaction Status Date / Time aspirin Allergy Verified 06/08/20 12:39 NSAIDS (Non-Steroidal Allergy Verified 06/08/20 12:39 Anti-Inflamma 06/08/20 12:43 74 year old male with pmhx of asthma prostate CA complaining of cough and SOB. PE: B/L upper lung grey wheezing clearing with coughing and then returning VSS Plan: MDI Pred CXr Pt to precede to ED for further eval
[2020-06-08 13:02] VITALS: BMI 22.6
[2020-06-08] MEDS ORDERED: DEXAMETHASONE SOD PHOSPHATE 10 MG/1 ML VIAL ONE (13:19)
--- NOTE | 2020-06-08 14:48 | PDOC ---
History of Present Illness - General Chief Complaint: Shortness of Breath Stated Complaint: COUGHING Time Seen by Provider: 06/08/20 12:43 History Source: Patient Exam Limitations: No Limitations - History of Present Illness Initial Comments: 06/08/20 14:33 74M Romansh-speaking with PMH of asthma and prostate CA (current chemo every Sunday) presents to ED accompanied by for a cold over the past week, with congestion. Also has chest tightness and SOB that feels like asthma. No relief with inhalers at home. He developed a productive cough 3 days ago. His is concerned that he hasn't eaten since onset of the cold. Still able to tolerate fluids. Denies fevers/chills, abd pain, nvdc. PMH: as in HPI Meds: In chart Allergies: ASA, NSAIDs PCP: unknown Heme/Onc: Dr. Ludwig De Jesus Captain/Check Airman #: [id number] ROS: GENERAL/CONSTITUTIONAL: No fever or chills. No weakness. CARDIOVASCULAR: +chest tightness, +shortness of breath RESPIRATORY: +cough, wheezing; no hemoptysis. GASTROINTESTINAL: No nausea, vomiting, diarrhea or constipation. NEUROLOGIC: No headache PE: GENERAL: AOx3; no apparent distress HEAD: NC/AT ENT: Auricles normal, hearing grossly normal, nares patent, moist mucosa, oropharynx clear without exudates. CARDIO: RRR, normal S1/S2, no murmurs, rubs, or gallops. Pulses 2+ and equal bilaterally. LUNGS: No distress, speaks full sentences, expiratory wheezes bilaterally ABDOMEN: Soft, nontender. No guarding, no rebound. No masses EXTREMITIES: Normal inspection, Normal range of motion, no edema. Assessment and Plan 1. Asthma -> duonebs 2. Eval for PNA, pneumonitis/COVID Rupert Randolph, PGY1 Emergency Medicine Past History - Medical History Allergies/Adverse Reactions: Allergies Allergy/AdvReac Type Severity Reaction Status Date / Time aspirin Allergy Verified 06/08/20 12:39 NSAIDS (Non-Steroidal Allergy Verified 06/08/20 12:39 Anti-Inflamma Home Medications: Ambulatory Orders Cetirizine HCl [Zyrtec -] 10 mg PO DAILY #10 tablet 12/14/14 Albuterol 2.5/Ipratropium 0.5 [Duoneb -] 1 neb IH QID 05/05/16 Albuterol Sulfate Inhaler - [Ventolin HFA Inhaler -] 2 inh PO Q6H 05/05/16 Amlodipine Besylate 10 mg PO DAILY 05/05/16 Atorvastatin Ca [Lipitor] 20 mg PO HS 05/05/16 Enalapril Maleate [Vasotec -] 10 mg PO DAILY 05/05/16 Hydrochlorothiazide 25 mg PO DAILY 05/05/16 Omeprazole [Prilosec] 40 mg PO DAILY 05/05/16 Tamsulosin HCl [Flomax -] 0.4 mg PO DAILY 05/05/16 Budesonide [Uceris] 33.4 gm RC BID #0 foam.appl 05/08/16 Wheat Dextrin [Benefiber] 1 each PO BID #0 powd.pack 05/08/16 Lidocaine 5% Patch [Lidoderm -] 1 patch TP DAILY #7 patch 01/03/20 Valacyclovir HCl [Valtrex -] 500 mg PO BID 02/23/20 Ibuprofen TID 02/24/20 Simethicone DAILY PRN 02/24/20 Nitrofurantoin Monohyd/M-Cryst [Macrobid -] 100 mg PO BID #14 capsule 04/24/20 Anemia: Yes Asthma: Yes Cancer: Yes (PROSTATE, RADIATION) COPD: No GI Disorders: Yes (DIVERTICULOSIS;ESOPHAGITIS;GERD;GASTRITIS;HEMORROIDS;H/H) HTN: Yes Hypercholesterolemia: Yes - Immunization History Immunization Up to Date: No - Psycho-Social/Smoking History Smoking History: Never smoked Have you smoked in the past 12 months: No - Substance Abuse Hx (Audit-C & DAST Scrn) How often the patient has a drink containing alcohol: Never Score: In Men: 4 or > Positive; In Women: 3 or > Positive: 0 Screen Result (Pos requires Nsg. Audit-10AR): Negative In the last yr the pt used illegal drug/Rx for NonMed reason: No Score: Yes response is considered Positive: 0 Screen Result (Positive result requires Nsg. DAST-10): Negative *Physical Exam - Vital Signs Last Vital Signs Temp Pulse Resp BP Pulse Ox 97.7 F 90 18 114/80 100 06/08/20 12:39 06/08/20 12:39 06/08/20 12:39 06/08/20 12:39 06/08/20 13:05 ED Treatment Course - LABORATORY CBC & Chemistry Diagram: 06/08/20 15:22 06/08/20 15:22 - Medications Given in the ED: ED Medications Discontinued Medications Generic Name Dose Route Start Last Admin Trade Name Fiordaliza PRN Reason Stop Dose Admin Albuterol Sulfate 2 puff 06/08/20 12:45 06/08/20 13:26 Ventolin Hfa Inhaler - IH 06/08/20 12:46 2 puff ONCE ONE Administration Dexamethasone Sodium Phosphate 10 mg 06/08/20 12:45 06/08/20 13:26 Decadron Injection - IM 06/08/20 12:46 10 mg ONCE ONE Administration Medical Decision Making - Medical Decision Making 06/08/20 14:55 74M presents with wheezing, SOB, productive cough, and no appetite. On exam, expiratory wheezes bilaterally. -> May be asthma exacerbation, will eval for PNA/pneumonitis, cardiomyopathy/HF -> CBC, CMP, mag, CXR, trop, BNP Will tx asthma with dexamethasone, duonebs. 06/08/20 16:15 Labs notable for - leukocytosis 15.2. ANC wnl. Trop neg. BNP mildly elevated CXR: increased interstitial lung markings (pulmonary vs congestive) -> with questionable imaging, clinical presentation, and immunosuppressed -> will tx as suspected PNA with vancomycin, zosyn, azithromycin (atypical coverage, on chemo) Discharge - Discharge Information Problems reviewed: Yes Clinical Impression/Diagnosis: Pneumonia Qualifiers: Pneumonia type: due to unspecified organism Laterality: unspecified laterality Lung location: unspecified part of lung Qualified Code(s): J18.9 - Pneumonia, unspecified organism Condition: Stable - Admission Yes - Follow up/Referral - Patient Discharge Instructions - Post Discharge Activity
[2020-06-08] MEDS ORDERED: LACTATED RINGERS SOLUTION 1000 ML INFUS.BAG IV ONE (14:52)
[2020-06-08] MEDS: ALBUTEROL SO4 2.5/IPRATROPIUM 0.5 INH SOL 3 ML VIAL.NEB. NEB SCH ×4 (15:10→15:42)
[2020-06-08] MEDS ORDERED: ACETAMINOPHEN 1000 MG/100 ML VIAL (NON FORMULARY) IVPB ONE (15:24)
--- NOTE | 2020-06-08 15:24 | PDOC ---
Documentation entered by Milad Nieves SCRIBE, acting as scribe for Jon Mackay MD. Jon Mackay MD: This documentation has been prepared by the felixibe, Milad Nieves SCRIBE, under my direction and personally reviewed by me in its entirety. I confirm that the documentation accurately reflects all work, treatment, procedures, and medical decision making performed by me. Attending Attestation - Resident Resident Name: Rupert Randolph - ED Attending Attestation I have performed the following: I have examined & evaluated the patient, The case was reviewed & discussed with the resident, I agree w/resident's findings & plan, Exceptions are as noted - HPI HPI: 06/08/20 15:02 The patient is a 74 year old male with a significant past medical history of prostate cancer (chemo every Sunday, last 4 days ago), asthma, hypertension, diverticulosis, esophagitis, gastritis, and hemorrhoids who presents to the emergency department for evaluation of cold like symptoms that began one week ago. The patient reports chest tightness, shortness of breath, wheezing and three days of a productive cough. He reports taking his inhaler to no relief. States these sxs feel like his asthma. The patients at bedside reported the patient has not eaten well for one week but is tolerating fluids. The patient denies chest/abdominal/back pain, fever, chills, nausea, vomiting, and/or any GI symptoms. Denies any symptoms. Denies any other symptoms. SHx: Denies Etoh, IVDA, tobacco use Allergies: aspiring, NSAIDs oncologist: Dr. Ludwig De Jesus pcp: Dr. Willoughby. - Physicial Exam PE: 06/08/20 14:36 "GENERAL: Awake, alert, and fully oriented, in no acute distress EYES: PERRLA, EOMI, sclera anicteric, conjunctiva clear ENT: Oropharynx clear without exudates. Moist mucosa NECK: Normal ROM, supple, no lymphadenopathy, JVD, or masses LUNGS: Breath sounds equal with good airmovement, + diffuse exp wheezing, and no crackles. No increased WOB HEART: Regular rate and rhythm, normal S1 and S2, no murmurs, rubs or gallops ABDOMEN: Soft, nontender, normoactive bowel sounds. No guarding, no rebound. No masses EXTREMITIES: Normal range of motion, no edema. No clubbing or cyanosis. No cords, erythema, or tenderness. No calf tenderness or edema. 2+ peripheral pluses x4 NEUROLOGICAL: Normal speech, cranial nerves intact, equal strength and sesnation b/l SKIN: Warm, Dry, normal turgor, no rashes or lesions noted. - Medical Decision Making 06/08/20 15:16 74yo M hx asthma, prostate ca on chemo presents to the ED with cold symptoms and SOB Found to be wheezing on exam DDx includes asthma exacerbation vs PNA vs COVID vs PE vs ACS vs CHF Plan for -labs -CXR -nebs and steroids -reassess Discharge - Discharge Information Problems reviewed: Yes - Follow up/Referral - Patient Discharge Instructions - Post Discharge Activity
[2020-06-08] MEDS ORDERED: ACETAMINOPHEN INJECTION 100 ML IVPB ONE (15:36)
[2020-06-08] MEDS ORDERED: ALBUTEROL SO4 2.5/IPRATROPIUM 0.5 INH SOL 3 ML VIAL.NEB. NEB ONE ×2 (15:36→15:43)
[2020-06-08 15:44] LABS: HEMATOCRIT 32.3 % (35.4-49); HEMOGLOBIN 10.7 GM/dL (11.7-16.9); MCHC 33.2 g/dl (32.0-35.9); MEAN CELL VOLUME 99.4 fl (80-96); MEAN PLT VOLUME 8.9 fl (7.5-11.1); PLATELET COUNT 196 K/MM3 (134-434); RBC 3.25 M/mm3 (4.00-5.60); RDW 17.3 % (11.9-15.9); WHITE BLOOD COUNT 15.2 K/mm3 (4.0-10.0)
[2020-06-08 16:16] LABS: ALBUMIN 2.6 g/dl (3.4-5.0); ALK PHOS 86 U/L (45-117); ANION GAP 8 MMOL/L (8-16); BILIRUBIN,TOTAL 0.3 mg/dL (0.2-1); BLOOD UREA NITROGEN 12.6 mg/dL (7-18); CALCIUM 8.9 mg/dL (8.5-10.1); CHLORIDE 102 mmol/L (98-107); CO2 25 mmol/L (21-32); CREATININE 0.5 mg/dL (0.55-1.3); GLUCOSE,RANDOM 84 mg/dL (74-106); MAGNESIUM 2.2 mg/dL (1.8-2.4); POTASSIUM 4.2 mmol/L (3.5-5.1); SGOT/AST 15 U/L (15-37); SGPT/ALT 12 U/L (13-61); SODIUM 136 mmol/L (136-145); TOT PROT 5.8 g/dl (6.4-8.2)
[2020-06-08] MEDS ORDERED: VANCOMYCIN 1 GM in D5W (PRE-DOCKED) 1,000 MG/250 ML IVPB ONE (16:24)
[2020-06-08] MEDS ORDERED: PIPERACILLIN/TAZOB 4.5 GM 4.5 GM in DEXTROSE 5%-WATER 100 ML IVPB ONE (16:24)
[2020-06-08] MEDS ORDERED: AZITHROMYCIN IVPB 500 MG in DEXTROSE 5%-WATER - 250 ML IVPB ONE (16:24)
[2020-06-08 17:31] LABS: INR 1.25 (0.83-1.09); PROTHROMBIN TIME (PATIENT) 14.7 SEC (9.7-13.0)
[2020-06-08 17:34] LABS: ACTIVATED PTT 27.6 SECONDS (25.2-36.5)
[2020-06-08] MEDS ORDERED: VANCOMYCIN 1 GRAM (PRE-DOCKED) 1,000 MG/250 ML BAG IVPB ONE (17:50)
[2020-06-08] MEDS ORDERED: PIPERACILLIN/TAZOB 4.5 GM 4.5 GM/100 ML BAG IVPB ONE (17:50)
[2020-06-08] MEDS ORDERED: AZITHROMYCIN IVPB 500 MG/250 ML BAG IVPB ONE (17:51)
--- OUTSIDE RECORDS SUMMARY | 2020-06-08 18:02 | XMS ---
:1945 Author Organization [facility] Care Team Providers Name Role Phone DM [id number] Unavailable Unavailable Re-disclosure Warning The records that you are about to access may contain information from federally- assisted alcohol or drug abuse programs. If such information is present, then the following federally mandated warning applies: This information has been disclosed to you from records protected by federal confidentiality rules (42 CFR part 2). The federal rules prohibit you from making any further disclosure of this information unless further disclosure is expressly permitted by the written consent of the person to whom it pertains or as otherwise permitted by 42 CFR part 2. A general authorization for the release of medical or other information is NOT sufficient for this purpose. The Federal rules restrict any use of the information to criminally investigate or prosecute any alcohol or drug abuse patient.The records that you are about to access may contain highly sensitive health information, the redisclosure of which is protected by Article 27-F of the [facility] Public Health law. If you continue you may haveaccess to information: Regarding HIV / AIDS; Provided by facilities licensed or operated by the [facility] Office of Mental Health; or Provided by the [facility] Office for People With Developmental Disabilities. If such information is present, then the following [facility] mandated warning applies: This information has been disclosed to you from confidential records which are protected by state law. State law prohibits you from making any further disclosure of this information without the specific written consent of the person to whom it pertains, or as otherwise permitted by law. Any unauthorized further disclosure in violation of state law may result in a fine or residential sentence or both. A general authorization for the release of medical or other information is NOT sufficient authorization for further disclosure. Encounters Encounter Providers Location Date Indications Data Source(s ) Outpatient Attender: [id number] [facility] 05/31/2020 [facility] 04:01:36 PM [facility]) Patient admitted. Outpatient Attender: [id number] [facility] 03/27/2020 11:29:20 AM [facility] ([facility]) Patient admitted. Outpatient Attender: [id number] [facility] 11/14/2019 05:12:56 AM [facility] ([facility]) Patient admitted. Insurance Providers Payer name Policy type Policy ID Covered Covered libertarian's Policy P juliane / Coverage libertarian ID relationship to [employer] type [place] MEDICAID [id number] SP [id number] [place] D[place] [id number] SP [id number] COMPLETE [place] MEDICARE [id number] SP [id number] MEDICARE [id number] SP [id number] Results ID Date Data Source [id number] 05/28/2020 10:51:00 AM EDT [facility] Name Value Range Interpretation Code Description Data Leona rce(s) Supporting Document(s ) SARS-CoV-2 [facility] Ql LIVE+probe This lab was ordered by [facility] a nd reported by [facility]. ID Date Data Source [id number] 03/16/2020 11:10:00 AM EDT [facility] Name Value Range Interpretation Code Description Data Leona rce(s) Supporting Document(s ) SARS-CoV-2 [facility] Ql LIVE+probe This lab was ordered by [facility] a nd reported by [facility]. ID Date Data Source [id number] 02/24/2020 03:29:00 PM EDT [facility] Name Value Range Interpretation Code Description Data Leona rce(s) Supporting Document(s ) SARS-CoV-2 [facility] Ql LIVE+probe This lab was ordered by [facility] a nd reported by [facility]. ID Date Data Source [id number] 02/23/2020 09:45:00 PM EDT [facility] Name Value Range Interpretation Description Data Sup porting Code Source(s) Document(s ) SARS [facility] CORONAVIRUS 2 RNA This lab was ordered by [facility] and reported by [facility]. ID Date Data Source [id number] 02/14/2020 01:24:00 PM EDT [facility] Name Value Range Interpretation Code Description Data Leona rce(s) Supporting Document(s ) SARS-CoV-2 [facility] RNA [facility] Ql LIVE+probe This lab was ordered by [facility] a nd reported by [facility]. ID Date Data Source [id number] 02/07/2020 01:33:00 AM EDT [facility] Name Value Range Interpretation Code Description Data Leona rce(s) Supporting Document(s ) SARS-CoV-2 [facility] RNA [facility] Ql LIVE+probe This lab was ordered by [facility] a nd reported by [facility]. Procedure
[2020-06-08] MEDS ORDERED: SODIUM CHLORIDE 1,000 ML IV SCH (18:15)
--- NOTE | 2020-06-08 18:30 | HP ---
CHIEF COMPLAINT: cough, diminished appetite PCP: Dr. Matamoros Oncology: Dr. 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 She endorses the cough has been ongoing for the past three days, and has recently become productive. He has been eating less and only drank glass of milk and juice yesterday. He denies any abdominal pain, nausea, or vomiting. She does nedorse few episodes of loose bowel movements without melena or hematochezia. Denies any recent antibiotics or medication changes. Denies prior ocurrence of similar symptoms. Denies subjective fevers, however does endorse chills. Currently denies any chest pain or palpitations. ER course was notable for: (1) Chest radiograph (2) (3) Recent Travel: denies PAST MEDICAL HISTORY: metastatic prostate cancer, multiple myeloma, asthma, hypertension PAST SURGICAL HISTORY: lumbar spine surgery Social History: Lives with . At baseline can ambulate and communicative. Smoking: Denies Alcohol: Denies Drugs: Denies Allergies aspirin Allergy (Verified 06/08/20 12:39) NSAIDS (Non-Steroidal Anti-Inflamma Allergy (Verified 06/08/20 12:39) HOME MEDICATIONS: Home Medications Medication Instructions Recorded Cetirizine HCl [Zyrtec -] 10 mg PO DAILY #10 tablet 12/14/14 Albuterol 2.5/Ipratropium 0.5 1 neb IH QID 05/05/16 [Duoneb -] Albuterol Sulfate Inhaler - 2 inh PO Q6H 05/05/16 [Ventolin HFA Inhaler -] Amlodipine Besylate 10 mg PO DAILY 05/05/16 Atorvastatin Ca [Lipitor] 20 mg PO HS 05/05/16 Enalapril Maleate [Vasotec -] 10 mg PO DAILY 05/05/16 Hydrochlorothiazide 25 mg PO DAILY 05/05/16 Omeprazole [Prilosec] 40 mg PO DAILY 05/05/16 Tamsulosin HCl [Flomax -] 0.4 mg PO DAILY 05/05/16 Budesonide [Uceris] 33.4 gm RC BID #0 foam.appl 05/08/16 Wheat Dextrin [Benefiber] 1 each PO BID #0 powd.pack 05/08/16 Lidocaine 5% Patch [Lidoderm -] 1 patch TP DAILY #7 patch 01/03/20 Valacyclovir HCl [Valtrex -] 500 mg PO BID 02/23/20 Ibuprofen TID 02/24/20 Simethicone DAILY PRN 02/24/20 Nitrofurantoin Monohyd/M-Cryst 100 mg PO BID #14 capsule 04/24/20 [Macrobid -] REVIEW OF SYSTEMS As per HPI. History limited given patient's clinical condition PHYSICAL EXAMINATION Vital Signs - 24 hr 06/08/20 06/08/20 12:39 13:05 Temperature 97.7 F Pulse Rate 90 Respiratory 18 Rate Blood Pressure 114/80 O2 Sat by Pulse 98 100 Oximetry (%) GENERAL: The patient is sleepy, arousable to voice, in no acute distress. HEAD: Normocephalic, atraumatic. EYES: PERRL, extraocular movements intact, sclera anicteric, conjunctiva clear. ENT: Oropharynx clear, without erythema or exudates. Dry mucous membranes. NECK: Trachea midline, full range of motion. Supple without lymphadenopathy. LUNGS: Breath sounds equal, clear to auscultation bilaterally. No wheezes, no crackles. No accessory muscle use. HEART: Regular rate and rhythm. S1, S2 without murmur, rub or gallop. ABDOMEN: Soft, nondistended, nontender to light and deep palpation x4 quadrants. No rebound tenderness, no guarding. Normoactive bowel sounds x4 quadrants. No hepatosplenomegaly, no masses appreciated. EXTREMITIES: 2+ radial, dorsalis pedis pulses bilaterally. Warm, well-perfused. No lower extremity edema bilaterally. NEUROLOGICAL: Cranial nerves II through XII grossly intact. Normal speech. No gross focal deficits. PSYCH: Normal mood, normal affect upon my encounter. SKIN: Warm, dry. Laboratory Results - last 24 hr 06/08/20 06/08/20 06/08/20 15:22 15:22 15:22 WBC 15.2 H RBC 3.25 L Hgb 10.7 L Hct 32.3 L MCV 99.4 H MCH 33.0 MCHC 33.2 RDW 17.3 H Plt Count 196 D MPV 8.9 D Absolute Neuts (auto) Neutrophils % Nondestructive Tester Lymphocytes % Nondestructive Tester Monocytes % Nondestructive Tester Eosinophils % Nondestructive Tester Basophils % Nondestructive Tester Nucleated RBC % 0 PT with INR 14.70 H INR 1.25 H PTT (Actin FS) 27.6 Sodium 136 Potassium 4.2 Chloride 102 Carbon Dioxide 25 Anion Gap 8 BUN 12.6 Creatinine 0.5 L Est GFR (CKD-EPI)AfAm 124.60 Est GFR (CKD-EPI)NonAf 107.51 Random Glucose 84 Calcium 8.9 Magnesium 2.2 Total Bilirubin 0.3 AST 15 ALT 12 L Alkaline Phosphatase 86 Creatine Kinase 30 Troponin I < 0.02 B-Natriuretic Peptide 333.0 H Total Protein 5.8 L Albumin 2.6 L ASSESSMENT/PLAN: Patient is a 74 year old male with history of metastatic prostate cancer (s/p chemotherapy- last session Sunday, and 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 Acute upper respiratory infection -Given productive cough, suspect pulmonary etiology of infection. Chest radiograph unrevealing for acute pneumonia. -Obtain blood cultures, urine cultures, urine for legionella/ pneumonia antigen, sputum culture -Influenza A/B, RSV, COVID swab -Patient received Vancomycin, Zosyn, Azithromycin in ED. Will continue Azithromycin pending culture results -Consider infectious disease consult, pending workup -Gentle hydration with IV normal saline at 50mL/ hour X1 Liter History of hypertension -Holding home antihypertensives given borderline blood pressures. -Follow vitals closely History of Asthma -Currently saturating well on room air, negaitve respiratory distress -Albuterol inhaler 2 puffs q4H PRN History of Prostate cancer, multiple myeloma -Continue Valacyclovir prophylaxis -Continue Eliquis- confirmed with pharmacy, however unclear indication. -Will require continued outpatient follow up upon discharge FEN -IV normal saline at 50mL/ hour X1 Liter -Follow BMP -Clear liquid diet, advance as tolerated Prophylaxis -Eliquis Disposition -Admit to medical surgical floor Family Medical History Family History: Unremarkable Visit type - Medication Review Med list reviewed for High Risk Meds patients 65 and older: Yes - Emergency Visit Emergency Visit: Yes ED Registration Date: 06/08/20 Care time: The patient presented to the Emergency Department on the above date and was hospitalized for further evaluation of their emergent condition. - New Patient This patient is new to me today: Yes Date on this admission: 06/08/20 - Critical Care Critical Care patient: No ATTENDING PHYSICIAN STATEMENT I saw and evaluated the patient. I reviewed the resident's note and discussed the case with the resident. I agree with the resident's findings and plan as documented. SUBJECTIVE: OBJECTIVE: ASSESSMENT AND PLAN:
[2020-06-08] MEDS ORDERED: ALBUTEROL SO4 HFA INHALER IH PRN (18:32)
[2020-06-08 18:38] LABS: ANISOCYTOSIS 1+; MACROCYTOSIS 0; PLATELET ESTIMATE NORMAL
[2020-06-08 21:22] LABS: URINE APPEARANCE CLOUDY; URINE BILIRUBIN NEGATIVE (NEGATIVE); URINE COLOR YELLOW; URINE GLUCOSE (UA) NEGATIVE (NEGATIVE); URINE KETONE 2+ (NEGATIVE); URINE LEUK ESTERASE NEGATIVE (NEGATIVE); URINE NITRITE NEGATIVE (NEGATIVE); URINE PROTEIN TRACE (NEGATIVE)
[2020-06-08] MEDS ORDERED: ATORVASTATIN CA 20 MG TABLET (FP) ONE (21:35)
[2020-06-08] MEDS ORDERED: APIXABAN 5 MG TABLET ONE (21:35)
[2020-06-08] MEDS ORDERED: valACYclovir HCL 500 MG TABLET (FP) ONE (21:36)
[2020-06-08] MEDS: APIXABAN 5 MG TABLET PO SCH (21:40)
[2020-06-08] MEDS: valACYclovir HCL 500 MG TABLET (FP) PO SCH (21:40)
--- NOTE | 2020-06-08 21:52 | PN ---
Teaching Attending Note Name of Resident: Myron Elena ATTENDING PHYSICIAN STATEMENT I saw and evaluated the patient. I reviewed the resident's note and discussed the case with the resident. I agree with the resident's findings and plan as documented. SUBJECTIVE: Patient seen and examined at bedside, h/o metastatic prostate ca, admitted for URI, no clear PNA on CXR. VSS. OBJECTIVE: GENERAL: Alert, answering questions, NAD HEENT NC/AT, neck supple, dry MM LUNGS: no wheezing or crackles, no increased WOB HEART: Regular rate and rhythm. S1, S2 without murmur, rub or gallop. ABDOMEN: Soft, nondistended, nontender to light and deep palpation x4 quadrants. No rebound tenderness, no guarding. Normoactive bowel sounds x4 quadrants. No h epatosplenomegaly, no masses appreciated. EXTREMITIES: 2+ radial, dorsalis pedis pulses bilaterally. Warm, well-perfused. No lower extremity edema bilaterally. NEUROLOGICAL: Cranial nerves II through XII grossly intact. Normal speech. No gross focal deficits. PSYCH: Normal mood, normal affect upon my encounter. SKIN: Warm, dry. Vital Signs (72 hours) 06/08/20 06/08/20 06/08/20 12:39 13:05 17:25 Temperature 97.7 F Pulse Rate 90 Pulse Rate [ 89 Apical] Respiratory 18 20 Rate Blood Pressure 114/80 Blood Pressure 128/88 [Right Arm] O2 Sat by Pulse 98 100 99 Oximetry (%) 06/08/20 06/08/20 19:20 20:53 Temperature 98.1 F Pulse Rate Pulse Rate [ 103 H Apical] Respiratory 18 Rate Blood Pressure Blood Pressure 111/77 [Right Arm] O2 Sat by Pulse 95 95 Oximetry (%) Laboratory Results - last 24 hr 06/08/20 06/08/20 06/08/20 15:22 15:22 15:22 WBC 15.2 H RBC 3.25 L Hgb 10.7 L Hct 32.3 L MCV 99.4 H MCH 33.0 MCHC 33.2 RDW 17.3 H Plt Count 196 D MPV 8.9 D Absolute Neuts (auto) Total Counted Neutrophils % Cigar Head Pegger Neutrophils % (Manual) 81.7 D Band Neutrophils % 4.3 Lymphocytes % Cig[place] Pegger Lymphocytes % (Manual) 3.2 L D Monocytes % Cig[place]ger Monocytes % (Manual) 2 L D Eosinophils % Cig[place]ger Eosinophils % (Manual) 0.0 D Basophils % [place]ig[place]ger Basophils % (Manual) 0.0 Myelocytes % (Man) 4 H Promyelocytes % (Man) 2 Blast Cells % (Manual) 0 Nucleated RBC % 0 Metamyelocytes 2 Differential Comment Hypersegmented Neuts Plasma Cells Smudge Cells Other Cell Type Hypochromia 0 Toxic Granulation Dohle Bodies Shirley Rods Platelet Estimate Normal Platelet Comment Present Polychromasia 1+ Poikilocytosis 0 Basophilic Stippling Anisocytosis 1+ Microcytosis 0 Macrocytosis 0 Spherocytes Siderocytes Sickle Cells Target Cells Tear Drop Cells Ovalocytes Stomatocytes Helmet Cells [place]angely Bodies Meridian Rings Rose Cells Acanthocytes (Spur) Rouleaux Fragmented RBCs Schistocytes PT with INR 14.70 H INR 1.25 H PTT (Actin FS) 27.6 Sodium 136 Potassium 4.2 Chloride 102 Carbon Dioxide 25 Anion Gap 8 BUN 12.6 Creatinine 0.5 L Est GFR (CKD-EPI)AfAm 124.60 Est GFR (CKD-EPI)NonAf 107.51 Random Glucose 84 Calcium 8.9 Magnesium 2.2 Total Bilirubin 0.3 AST 15 ALT 12 L Alkaline Phosphatase 86 Creatine Kinase 30 Troponin I < 0.02 B-Natriuretic Peptide 333.0 H Total Protein 5.8 L Albumin 2.6 L Urine Color Urine Appearance Urine pH Ur Specific Huger Urine Protein Urine Glucose (UA) Urine Ketones Urine Blood Urine Nitrite Urine Bilirubin Urine Urobilinogen Ur Leukocyte Esterase Influenza A (Rapid) Influenza B (Rapid) RSV Rapid 06/08/20 06/08/20 06/08/20 15:22 19:30 19:30 WBC RBC Hgb Hct MCV MCH MCHC RDW Plt Count MPV Absolute Neuts (auto) Total Counted Cancelled Neutrophils % Neutrophils % (Manual) Cancelled Band Neutrophils % Cancelled Lymphocytes % Lymphocytes % (Manual) Cancelled Monocytes % Monocytes % (Manual) Cancelled Eosinophils % Eosinophils % (Manual) Cancelled Basophils % Basophils % (Manual) Cancelled Myelocytes % (Man) Cancelled Promyelocytes % (Man) Cancelled Blast Cells % (Manual) Cancelled Nucleated RBC % Cancelled Metamyelocytes Cancelled Differential Comment Cancelled Hypersegmented Neuts Cancelled Plasma Cells Cancelled Smudge Cells Cancelled Other Cell Type Cancelled Hypochromia Cancelled Toxic Granulation Cancelled Dohle Bodies Cancelled Shirley Rods Cancelled Platelet Estimate Cancelled Platelet Comment Cancelled Polychromasia Cancelled Poikilocytosis Cancelled Basophilic Stippling Cancelled Anisocytosis Cancelled Microcytosis Cancelled Macrocytosis Cancelled Spherocytes Cancelled Siderocytes Cancelled Sickle Cells Cancelled Target Cells Cancelled Tear Drop Cells Cancelled Ovalocytes Cancelled Stomatocytes Cancelled Helmet Cells Cancelled [place]ang[place] Bodies Cancelled Meridian Rings Cancelled Rose Cells Cancelled Acanthocytes (Spur) Cancelled Rouleaux Cancelled Fragmented RBCs Cancelled Schistocytes Cancelled PT with INR INR PTT (Actin FS) Sodium Potassium Chloride Carbon Dioxide Anion Gap BUN Creatinine Est GFR (CKD-EPI)AfAm Est GFR (CKD-EPI)NonAf Random Glucose Calcium Magnesium Total Bilirubin AST ALT Alkaline Phosphatase Creatine Kinase Troponin I B-Natriuretic Peptide Total Protein Albumin Urine Color Urine Appearance Urine pH Ur Specific Huger Urine Protein Urine Glucose (UA) Urine Ketones Urine Blood Urine Nitrite Urine Bilirubin Urine Urobilinogen Ur Leukocyte Esterase Influenza A (Rapid) Negative Influenza B (Rapid) Negative RSV Rapid Negative 06/08/20 20:30 WBC RBC Hgb Hct MCV MCH MCHC RDW Plt Count MPV Absolute Neuts (auto) Total Counted Neutrophils % Neutrophils % (Manual) Band Neutrophils % Lymphocytes % Lymphocytes % (Manual) Monocytes % Monocytes % (Manual) Eosinophils % Eosinophils % (Manual) Basophils % Basophils % (Manual) Myelocytes % (Man) Promyelocytes % (Man) Blast Cells % (Manual) Nucleated RBC % Metamyelocytes Differential Comment Hypersegmented Neuts Plasma Cells Smudge Cells Other Cell Type Hypochromia Toxic Granulation Dohle Bodies Shirley Rods Platelet Estimate Platelet Comment Polychromasia Poikilocytosis Basophilic Stippling Anisocytosis Microcytosis Macrocytosis Spherocytes Siderocytes Sickle Cells Target Cells Tear Drop Cells Ovalocytes Stomatocytes Helmet Cells [place] Bodies Meridian Rings [place] Cells Acanthocytes (Spur) Rouleaux Fragmented RBCs Schistocytes PT with INR INR PTT (Actin FS) Sodium Potassium Chloride Carbon Dioxide Anion Gap BUN Creatinine Est GFR (CKD-EPI)AfAm Est GFR (CKD-EPI)NonAf Random Glucose Calcium Magnesium Total Bilirubin AST ALT Alkaline Phosphatase Creatine Kinase Troponin I B-Natriuretic Peptide Total Protein Albumin Urine Color Yellow Urine Appearance Cloudy Urine pH 5.0 Ur Specific Huger 1.030 Urine Protein Trace Urine Glucose (UA) Negative Urine Ketones 2+ H Urine Blood Negative Urine Nitrite Negative Urine Bilirubin Negative Urine Urobilinogen 1.0 Ur Leukocyte Esterase Negative Influenza A (Rapid) Influenza B (Rapid) RSV Rapid Home Medications Medication Instructions Recorded Albuterol 2.5/Ipratropium 0.5 1 neb IH QID 05/05/16 [Duoneb -] Albuterol Sulfate Inhaler - 2 inh PO Q6H 05/05/16 [Ventolin HFA Inhaler -] Amlodipine Besylate 10 mg PO DAILY 05/05/16 Atorvastatin Ca [Lipitor] 20 mg PO HS 05/05/16 Enalapril Maleate [Vasotec -] 10 mg PO DAILY 05/05/16 Hydrochlorothiazide 25 mg PO DAILY 05/05/16 Omeprazole [Prilosec] 40 mg PO DAILY 05/05/16 Tamsulosin HCl [Flomax -] 0.4 mg PO DAILY 05/05/16 Valacyclovir HCl [Valtrex -] 500 mg PO BID 02/23/20 Simethicone DAILY PRN 02/24/20 Apixaban [Eliquis] 5 mg PO BID 06/08/20 Current Medications Generic Name Dose Route Start Last Admin Trade Name Freq PRN Reason Stop Dose Admin Albuterol Sulfate 2 puff 06/08/20 18:32 Ventolin Hfa Inhaler - IH Q4H PRN SHORT OF BREATH/WHEEZING Apixaban 5 mg 06/08/20 22:00 06/08/20 21:40 Eliquis - PO 5 mg BID ÁNGELA Administration Atorvastatin Calcium 20 mg 06/08/20 22:00 06/08/20 21:40 Lipitor - PO 20 mg HS ÁNGELA Administration Sodium Chloride 1,000 mls @ 50 mls/hr 06/08/20 18:15 06/08/20 19:20 Normal Saline - IV 06/09/20 14:14 50 mls/hr ASDIR ÁNGELA Administration Piperacillin Sod/Tazobactam 50 mls @ 100 mls/hr 06/09/20 02:00 Sod 3.375 gm/ Dextrose IVPB Q8H-IV ÁNGELA Protocol Azithromycin 500 mg in 250 mls @ 250 mls/hr 06/09/20 10:00 Zithromax 500mg Ivpb (Pre-Docked) IVPB DAILY ÁNGELA Pantoprazole Sodium 40 mg 06/09/20 10:00 Protonix - PO DAILY [facility] Tamsulosin HCl 0.4 mg 06/09/20 08:30 Flomax - PO DAILY@0830 [facility] Valacyclovir HCl 500 mg 06/08/20 22:00 06/08/20 21:40 Valtrex - PO 500 mg BID ÁNGELA Administration ASSESSMENT AND PLAN: 74 M URI, r/o interstitial/atypical PNA Metastatic prostate ca MM HTN HLD Afib on AC Plan: Cont. Azithromycin for URI, send for urine legionella/mycoplasma Cont. AC w/ Eliquis Correct electrolytes Cont. FLomax, monitor urine output Repeat CXR in AM to r/o aspiration HOB elevation, incentive spirometry DVT ppx: Eliquis
[2020-06-08] MEDS ORDERED: ATORVASTATIN CA 20 MG TABLET (FP) PO SCH (22:00)
[2020-06-09] MEDS ORDERED: PIPERACILLIN/TAZOB 3.375 GM 3.375 GM in DEXTROSE 5%-WATER - 50 ML IVPB SCH (02:00)
[2020-06-09] MEDS ORDERED: VANCOMYCIN 1 GM in D5W (PRE-DOCKED) 1,000 MG/250 ML IVPB ONE (06:00)
[2020-06-09 07:14] LABS: HEMATOCRIT 29.5 % (35.4-49); HEMOGLOBIN 9.8 GM/dL (11.7-16.9); MCH 32.8 pg (25.7-33.7); MCHC 33.3 g/dl (32.0-35.9); MEAN CELL VOLUME 98.6 fl (80-96); PLATELET COUNT 226 K/MM3 (134-434); RBC 2.99 M/mm3 (4.00-5.60); RDW 17.3 % (11.9-15.9); WHITE BLOOD COUNT 21.5 K/mm3 (4.0-10.0)
[2020-06-09 07:58] LABS: ALBUMIN 2.5 g/dl (3.4-5.0); BILIRUBIN,TOTAL 0.4 mg/dL (0.2-1); BLOOD UREA NITROGEN 11.7 mg/dL (7-18); CALCIUM 8.4 mg/dL (8.5-10.1); CREATININE 0.6 mg/dL (0.55-1.3); MAGNESIUM 2.1 mg/dL (1.8-2.4); PHOSPHOROUS 4.2 mg/dL (2.5-4.9); POTASSIUM 4.9 mmol/L (3.5-5.1); TOT PROT 5.4 g/dl (6.4-8.2)
[2020-06-09 08:11] VITALS: BP 131/83; PULSE 74; TEMP 97.6
[2020-06-09] MEDS ORDERED: TAMSULOSIN HCL 0.4 MG CAP ONE (08:15)
[2020-06-09] MEDS ORDERED: TAMSULOSIN HCL 0.4 MG CAP PO SCH (08:30)
--- NOTE | 2020-06-09 09:51 | EKG ---
Test Reason : Blood Pressure : / mmHG Vent. Rate : 101 BPM Atrial Rate : 101 BPM P-R Int : 122 ms QRS Dur : 094 ms QT Int : 356 ms P-R-T Axes : 053 003 043 degrees QTc Int : 461 ms SINUS TACHYCARDIA OTHERWISE NORMAL ECG WHEN COMPARED WITH ECG OF 23-FEB-2020 16:58, NO SIGNIFICANT CHANGE WAS FOUND Confirmed by MD Lebron Daniel ([id number]) on 06/09/2020 9:50:52 AM Referred By: Confirmed By:Mikael Lebron MD
[2020-06-09] MEDS ORDERED: PANTOPRAZOLE 40 MG TABLET PO SCH (10:00)
[2020-06-09] MEDS ORDERED: AZITHROMYCIN IVPB 500 MG/250 ML BAG IVPB SCH (10:00)
[2020-06-09] MEDS ORDERED: ENOXAPARIN NA (PORCINE) 40 MG/0.4 ML DISP.SYRIN SQ SCH (10:00)
[2020-06-09] MEDS ORDERED: PANTOPRAZOLE 40 MG TABLET ONE (10:03)
[2020-06-09] MEDS ORDERED: APIXABAN 5 MG TABLET ONE (10:03)
[2020-06-09] MEDS ORDERED: AZITHROMYCIN IVPB 500 MG/250 ML BAG IVPB ONE (10:04)
[2020-06-09] MEDS ORDERED: valACYclovir HCL 500 MG TABLET (FP) ONE (10:04)
[2020-06-09] MEDS: valACYclovir HCL 500 MG TABLET (FP) PO SCH (10:17)
[2020-06-09] MEDS: APIXABAN 5 MG TABLET PO SCH (10:17)
--- NOTE | 2020-06-09 15:08 | PN ---
Teaching Attending Note Name of Resident: Adelso Villela ATTENDING PHYSICIAN STATEMENT I saw and evaluated the patient. I reviewed the resident's note and discussed the case with the resident. I agree with the resident's findings and plan as documented. SUBJECTIVE: Patient states he feels better He does report diarrhea He does not know what his home medications are OBJECTIVE: Vital Signs Period Temp Pulse Resp BP Sys/Carpenter Pulse Ox Last 24 Hr 97.4 F-98.1 F 74-103 18-20 111-131/63-88 95-100 As per resident note ASSESSMENT AND PLAN: 74 y/o M with Metastatic Prostate CA, Multiple Myeloma, Asthma, HTN, who presents with Cough Cough: Patient denies COVID exposure, loss of taste Does not have Lymphopenia Continue Azithromycin, Zosyn at this time f/u infectious work up ID consultation Leukocytosis Continue BS abx at this time Concern for atypical infection in setting of active chemo Diarrhea Check C. Diff Continue to monitor Patient asking his to bring in his home medication at this time
--- NOTE | 2020-06-09 15:42 | DS ---
Physical Exam: SUBJECTIVE: Patient seen and examined multiple times in the ED. Ptn endorsed episodes of loose stool overnight, which had resolved initially in the ED. Described mild SoB w/o CP. Denied F/C, N/V, changes in urinary or bowel habits. Seen later in the ED, ptn endorsed 1 episode of diarrhea and that he was feeling better, without complaints, and was adamant that we discharge him. Very agitated at this time. OBJECTIVE: Vital Signs Period Temp Pulse Resp BP Sys/Carpenter Pulse Ox Last 24 Hr 97.4 F-98.1 F 74-103 18-20 111-131/63-88 95-100 PHYSICAL EXAM GENERAL: The patient is awake, alert, and fully oriented, in no acute distress. HEAD: Normal with no signs of trauma. EYES: PERRL, extraocular movements intact, sclera anicteric, conjunctiva clear. ENT: Ears normal, nares patent, oropharynx clear without exudates, moist mucous membranes. NECK: Trachea midline, full range of motion, supple. LUNGS: Wheezing noted b/l in the LL grey as well as crackes. Breath sounds equal, clear to auscultation bilaterally in the UL grey, no accessory muscle use. HEART: Regular rate and rhythm, S1, S2 without murmur, rub or gallop. ABDOMEN: Soft, nontender, nondistended, normoactive bowel sounds, no guarding UPPER EXTREMITIES: 2+ pulses, warm, well-perfused, no edema. LOWER: EXTREMITIES: 2+ pulses, warm, well-perfused, no edema. NEUROLOGICAL: Normal speech, gait not observed. PSYCH: Normal mood, normal affect. SKIN: Warm, dry, normal turgor, no rashes or lesions noted. LABS Laboratory Results - last 24 hr 06/08/20 06/08/20 06/08/20 15:22 15:22 15:22 WBC 15.2 H RBC 3.25 L Hgb 10.7 L Hct 32.3 L MCV 99.4 H MCH 33.0 MCHC 33.2 RDW 17.3 H Plt Count 196 D MPV 8.9 D Absolute Neuts (auto) Total Counted Neutrophils % Archaeology Professor Neutrophils % (Manual) 81.7 D Band Neutrophils % 4.3 Lymphocytes % Archaeology Professor Lymphocytes % (Manual) 3.2 L D Monocytes % Archaeology Professor Monocytes % (Manual) 2 L D Eosinophils % Archaeology Professor Eosinophils % (Manual) 0.0 D Basophils % Archaeology Professor Basophils % (Manual) 0.0 Myelocytes % (Man) 4 H Promyelocytes % (Man) 2 Blast Cells % (Manual) 0 Nucleated RBC % 0 Metamyelocytes 2 Differential Comment Hypersegmented Neuts Plasma Cells Smudge Cells Other Cell Type Hypochromia 0 Toxic Granulation Dohle Bodies Shirley Rods Platelet Estimate Normal Platelet Comment Present Polychromasia 1+ Poikilocytosis 0 Basophilic Stippling Anisocytosis 1+ Microcytosis 0 Macrocytosis 0 Spherocytes Siderocytes Sickle Cells Target Cells Tear Drop Cells Ovalocytes Stomatocytes Helmet Cells [place] Bodies [place] Rings [place] Cells Acanthocytes (Spur) Rouleaux Fragmented RBCs Schistocytes PT with INR 14.70 H INR 1.25 H PTT (Actin FS) 27.6 Sodium 136 Potassium 4.2 Chloride 102 Carbon Dioxide 25 Anion Gap 8 BUN 12.6 Creatinine 0.5 L Est GFR (CKD-EPI)AfAm 124.60 Est GFR (CKD-EPI)NonAf 107.51 Random Glucose 84 Calcium 8.9 Phosphorus Magnesium 2.2 Total Bilirubin 0.3 AST 15 ALT 12 L Alkaline Phosphatase 86 Creatine Kinase 30 Troponin I < 0.02 B-Natriuretic Peptide 333.0 H Total Protein 5.8 L Albumin 2.6 L Urine Color Urine Appearance Urine pH Ur Specific [place] Urine Protein Urine Glucose (UA) Urine Ketones Urine Blood Urine Nitrite Urine Bilirubin Urine Urobilinogen Ur Leukocyte Esterase COVID-19 (LIVE) Influenza A (Rapid) Influenza B (Rapid) RSV Rapid 06/08/20 06/08/20 06/08/20 15:22 15:55 19:30 WBC RBC Hgb Hct MCV MCH MCHC RDW Plt Count MPV Absolute Neuts (auto) Total Counted Cancelled Neutrophils % Neutrophils % (Manual) Cancelled Band Neutrophils % Cancelled Lymphocytes % Lymphocytes % (Manual) Cancelled Monocytes % Monocytes % (Manual) Cancelled Eosinophils % Eosinophils % (Manual) Cancelled Basophils % Basophils % (Manual) Cancelled Myelocytes % (Man) Cancelled Promyelocytes % (Man) Cancelled Blast Cells % (Manual) Cancelled Nucleated RBC % Cancelled Metamyelocytes Cancelled Differential Comment Cancelled Hypersegmented Neuts Cancelled Plasma Cells Cancelled Smudge Cells Cancelled Other Cell Type Cancelled Hypochromia Cancelled Toxic Granulation Cancelled Dohle Bodies Cancelled Shirley Rods Cancelled Platelet Estimate Cancelled Platelet Comment Cancelled Polychromasia Cancelled Poikilocytosis Cancelled Basophilic Stippling Cancelled Anisocytosis Cancelled Microcytosis Cancelled Macrocytosis Cancelled Spherocytes Cancelled Siderocytes Cancelled Sickle Cells Cancelled Target Cells Cancelled Tear Drop Cells Cancelled Ovalocytes Cancelled Stomatocytes Cancelled Helmet Cells Cancelled [place] Bodies Cancelled [place] Rings Cancelled Rose Cells Cancelled Acanthocytes (Spur) Cancelled Rouleaux Cancelled Fragmented RBCs Cancelled Schistocytes Cancelled PT with INR INR PTT (Actin FS) Sodium Potassium Chloride Carbon Dioxide Anion Gap BUN Creatinine Est GFR (CKD-EPI)AfAm Est GFR (CKD-EPI)NonAf Random Glucose Calcium Phosphorus Magnesium Total Bilirubin AST ALT Alkaline Phosphatase Creatine Kinase Troponin I B-Natriuretic Peptide Total Protein Albumin Urine Color Urine Appearance Urine pH Ur Specific [place] Urine Protein Urine Glucose (UA) Urine Ketones Urine Blood Urine Nitrite Urine Bilirubin Urine Urobilinogen Ur Leukocyte Esterase COVID-19 (LIVE) Not detected Influenza A (Rapid) Negative Influenza B (Rapid) Negative RSV Rapid 06/08/20 06/08/20 06/09/20 19:30 20:30 05:44 WBC 21.5 H RBC 2.99 L Hgb 9.8 L Hct 29.5 L MCV 98.6 H MCH 32.8 MCHC 33.3 RDW 17.3 H Plt Count 226 MPV 9.0 Absolute Neuts (auto) Total Counted Neutrophils % Neutrophils % (Manual) Band Neutrophils % Lymphocytes % Lymphocytes % (Manual) Monocytes % Monocytes % (Manual) Eosinophils % Eosinophils % (Manual) Basophils % Basophils % (Manual) Myelocytes % (Man) Promyelocytes % (Man) Blast Cells % (Manual) Nucleated RBC % Metamyelocytes Differential Comment Hypersegmented Neuts Plasma Cells Smudge Cells Other Cell Type Hypochromia Toxic Granulation Dohle Bodies Shirley Rods Platelet Estimate Platelet Comment Polychromasia Poikilocytosis Basophilic Stippling Anisocytosis Microcytosis Macrocytosis Spherocytes Siderocytes Sickle Cells Target Cells Tear Drop Cells Ovalocytes Stomatocytes Helmet Cells [place] Bodies [place] Rings Rose Cells Acanthocytes (Spur) Rouleaux Fragmented RBCs Schistocytes PT with INR INR PTT (Actin FS) Sodium Potassium Chloride Carbon Dioxide Anion Gap BUN Creatinine Est GFR (CKD-EPI)AfAm Est GFR (CKD-EPI)NonAf Random Glucose Calcium Phosphorus Magnesium Total Bilirubin AST ALT Alkaline Phosphatase Creatine Kinase Troponin I B-Natriuretic Peptide Total Protein Albumin Urine Color Yellow Urine Appearance Cloudy Urine pH 5.0 Ur Specific [place] 1.030 Urine Protein Trace Urine Glucose (UA) Negative Urine Ketones 2+ H Urine Blood Negative Urine Nitrite Negative Urine Bilirubin Negative Urine Urobilinogen 1.0 Ur Leukocyte Esterase Negative COVID-19 (LIVE) Influenza A (Rapid) Influenza B (Rapid) RSV Rapid Negative 06/09/20 05:44 WBC RBC Hgb Hct MCV MCH MCHC RDW Plt Count MPV Absolute Neuts (auto) Total Counted Neutrophils % Neutrophils % (Manual) Band Neutrophils % Lymphocytes % Lymphocytes % (Manual) Monocytes % Monocytes % (Manual) Eosinophils % Eosinophils % (Manual) Basophils % Basophils % (Manual) Myelocytes % (Man) Promyelocytes % (Man) Blast Cells % (Manual) Nucleated RBC % Metamyelocytes Differential Comment Hypersegmented Neuts Plasma Cells Smudge Cells Other Cell Type Hypochromia Toxic Granulation Dohle Bodies Shirley Rods Platelet Estimate Platelet Comment Polychromasia Poikilocytosis Basophilic Stippling Anisocytosis Microcytosis Macrocytosis Spherocytes Siderocytes Sickle Cells Target Cells Tear Drop Cells Ovalocytes Stomatocytes Helmet Cells [place] Bodies [place] Rings [place] Cells Acanthocytes (Spur) Rouleaux Fragmented RBCs Schistocytes PT with INR INR PTT (Actin FS) Sodium 136 Potassium 4.9 Chloride 102 Carbon Dioxide 26 Anion Gap 9 BUN 11.7 Creatinine 0.6 Est GFR (CKD-EPI)AfAm 115.60 Est GFR (CKD-EPI)NonAf 99.74 Random Glucose 90 Calcium 8.4 L Phosphorus 4.2 Magnesium 2.1 Total Bilirubin 0.4 AST 13 L ALT 13 Alkaline Phosphatase 77 Creatine Kinase Troponin I B-Natriuretic Peptide Total Protein 5.4 L Albumin 2.5 L Urine Color Urine Appearance Urine pH Ur Specific [place] Urine Protein Urine Glucose (UA) Urine Ketones Urine Blood Urine Nitrite Urine Bilirubin Urine Urobilinogen Ur Leukocyte Esterase COVID-19 (LIVE) Influenza A (Rapid) Influenza B (Rapid) RSV Rapid HOSPITAL COURSE: Date of Admission:06/08/20 CXR: Lung markings could represent an early pulmonary process or some congestive changes EKG: Sinus tachycardia Date of Discharge: 06/09/20 74 yo M w/ PMHx of metastatic prostate cancer (s/p chemotherapy- last session Sunday06/04/2020, and 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 De Jesus), multiple myeloma, asthma, hypertension, presented to the [facility] ED due to cough, and diminished appetite. Cough has been present for x3 days and has recently become productive. Additionally endorsed few episodes of loose stools day prior to admission. On ROS endorsed chills. He had been eating less and only drank a glass of milk and juice yesterday. Denied DE DIOS, CP, SoB, Abdominal pain, nausea of vomiting. Denied any recent antibiotics or medication changes. Denied prior occurrence of similar symptoms. In the ED, ptn was given Zosyn, Vanc, Azithromax, and Valacyclovir due to his recent chemotherapy and elevated white count, max 21.5. Ptn remained afebrile during his stay. BNP slightly elevated at 333. Influenza A+B were negative. CXR as above. Urine Legionella and Strep antigen testing were performed. Blood and Urine Cx were drawn prior to Abx. Patient was admitted for r/o upper respiratory tract infection likely CAP, possibly atypical. Ptn was later seen during rounds and endorsed another bout of diarrhea, at which time a Cdiff assay was ordered. MD was called to the ED later in the day after patient became agitated after he began to feel better and thought that he no longer required treatment. Demanded that he be given antibiotics that he could take at home. 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 Patient was informed of all the risks of leaving AMA and benefits of remaining in the hospital. Patient was asked to stay and consistently demanded that he go home. An AMA form was printed for the patient, and he was explained that by refusing treatment for a potential URI he risks further infection and worsening prognosis including but not limited to fever, chills, shortness of breath, chest pain, increased infection burden, possibility for readmission, mechanical ventilation and pressor support. Patient communicated with his present that he understood the risks and signed AMA to leave the hospital. Ptn was given a 5 day course of Levaquin 750mg qDaily with instructions on how to take. E-transmitted to his preferred pharmacy: [facility] [id number] Minutes to complete discharge: 36 Discharge Summary Problems reviewed: Yes Reason For Visit: MALIGNANT NEOPLASM OF PROSTATE PNEUMONIA Condition: Improved - Instructions Diet, Activity, Other Instructions: Patient was admitted to the hospital due to symptoms consistent with community acquired pneumonia with an elevated WBC. Patient stated he felt better in the ED and no longer felt he needed to be here. Attempted to convince patient and his and patient could not be persuaded. Disposition: AGAINST MEDICAL ADVICE - Home Medications Comprehensive Discharge Medication List: Ambulatory Orders Albuterol 2.5/Ipratropium 0.5 [Duoneb -] 1 neb IH QID 05/05/16 Albuterol Sulfate Inhaler - [Ventolin HFA Inhaler -] 2 inh PO Q6H 05/05/16 Amlodipine Besylate 10 mg PO DAILY 05/05/16 Atorvastatin Ca [Lipitor] 20 mg PO HS 05/05/16 Enalapril Maleate [Vasotec -] 10 mg PO DAILY 05/05/16 Hydrochlorothiazide 25 mg PO DAILY 05/05/16 Omeprazole [Prilosec] 40 mg PO DAILY 05/05/16 Tamsulosin HCl [Flomax -] 0.4 mg PO DAILY 05/05/16 Valacyclovir HCl [Valtrex -] 500 mg PO BID 02/23/20 Simethicone DAILY PRN 02/24/20 Apixaban [Eliquis] 5 mg PO BID 06/08/20 levoFLOXacin [Levaquin] 750 mg PO DAILY 5 Days #5 tab 06/09/20 This patient is new to me today: Yes Date on this admission: 06/09/20 Emergency Visit: Yes ED Registration Date: 06/08/20 Care time: The patient presented to the Emergency Department on the above date and was hospitalized for further evaluation of their emergent condition. Critical Care patient: No - Discharge Referral Referred to [facility] Med [facility] No ATTENDING PHYSICIAN STATEMENT I saw and evaluated the patient. I reviewed the resident's note and discussed the case with the resident. I agree with the resident's findings and plan as documented. SUBJECTIVE: OBJECTIVE: ASSESSMENT AND PLAN:
== END 2020-06-09 14:38 | disposition left against medical advice (07) | DRG 194 ==
LOC: JER 12:28 → JERBED 17:44
PROVIDERS: ATTEND Internal Medicine
DX: J18.9 Pneumonia, unspecified organism (principal); C90.00 Multiple myeloma not having achieved remission; C79.51 Secondary malignant neoplasm of bone; J45.909 Unspecified asthma, uncomplicated; C61 Malignant neoplasm of prostate; I10 Essential (primary) hypertension; K29.70 Gastritis, unspecified, without bleeding; J06.9 Acute upper respiratory infection, unspecified; E78.5 Hyperlipidemia, unspecified; I48.91 Unspecified atrial fibrillation; R19.7 Diarrhea, unspecified
CPT/HCPCS: 36415; 71046-TC-FY; 80053; 81003; 82550; 83735; 83880; 84100; 84484; 85025; 85027; 85610; 85730; 87040; 87086; 87804; 87807; 87899; 93005; 93010; 99285-25; C9803; J0131; J1100; U0003